=== PATIENT | male | born 1970 | race Hispanic/Latino ===

== ENCOUNTER 2021-03-25 10:01 | Inpatient (IN) | payer MEDICAID, OTHER ==
[2021-03-25] MEDS ORDERED: IPRATROPIUM 0.02% NEBU 2.5 ML IH ONE ×2 (10:42→14:18)
[2021-03-25] MEDS ORDERED: ALBUTEROL 2.5 MG/3 ML NEBU IH ONE ×2 (10:42→14:18)
[2021-03-25] MEDS ORDERED: methylPREDNISolone Sod Succinate 125 MG/2 ML INJ IV ONE (10:43)
--- NOTE | 2021-03-25 11:06 | Emergency Department Report ---
HPI - General Chief Complaint: Dyspnea/Respdistress Time Seen by Provider: 03/25/21 10:28 - HPI HPI: Room 23 The patient is a 51-year-old male present with a chief complaint of shortness of breath. Patient states for the past 3 to 4 days he has had shortness of breath at rest as well as dyspnea on exertion. Patient admits to orthopnea for the past 3 to 4 days as well. Patient states he has had a cough has been nonproductive for the past week. Patient is to subjective fever. Patient denies loss of sense of taste or smell. Patient states he has not been vaccinated against Covid ED Past Medical Hx - Past Medical History Previous Medical History?: No - Surgical History Past Surgical History?: No - Family History Family history: no significant - Social History Smoking Status: Current Every Day Smoker (1 pack/day) Substance Use Type: Alcohol (Moderate), Marijuana ED Review of Systems ROS: Stated complaint: FAITH Other details as noted in HPI Constitutional: fever (Subjective) Eyes: denies: eye pain ENT: denies: throat pain Respiratory: cough, shortness of breath Cardiovascular: dyspnea on exertion. denies: chest pain Endocrine: no symptoms reported Gastrointestinal: denies: abdominal pain Genitourinary: denies: dysuria Musculoskeletal: denies: back pain Neurological: denies: headache Physical Exam - Physical Exam Vital Signs: Vital Signs 03/25/21 03/25/21 10:10 10:30 Temperature 98.1 F 98.1 F Pulse Rate 101 H 88 Respiratory 18 16 Rate Blood Pressure 158/88 Blood Pressure 147/101 [Left] O2 Sat by Pulse 97 96 Oximetry Physical Exam: GENERAL: The patient is well-developed well-nourished male lying on stretcher not appearing to be in acute distress. [] HEENT: Normocephalic. Atraumatic. Extraocular motions are intact. Patient has moist mucous membranes. NECK: Supple. Trachea midline CHEST/LUNGS: Diminished throughout HEART/CARDIOVASCULAR: Regular. There is no tachycardia. There is no gallop rub or murmur. ABDOMEN: Abdomen is soft, nontender. Patient has normal bowel sounds. There is no abdominal distention. SKIN: There is no rash. There is no edema. There is no diaphoresis. NEURO: The patient is awake, alert, and oriented. The patient is cooperative. The patient has no focal neurologic deficits. The patient has normal speech. GCS 15 MUSCULOSKELETAL: There is no evidence of acute injury. ED Course Vital Signs 03/25/21 03/25/21 10:10 10:30 Temperature 98.1 F 98.1 F Pulse Rate 101 H 88 Respiratory 18 16 Rate Blood Pressure 158/88 Blood Pressure 147/101 [Left] O2 Sat by Pulse 97 96 Oximetry - Reevaluation(s) Reevaluation #1: 03/25/21 12:06 Patient states he feels as though he is improving. Patient still diminished but now able to hear faint wheezing. Will continue neb Reevaluation #2: 03/25/21 14:21 Patient remains diminished with increased work of breathing. SPO2 ranging from 89-91% on supplemental O2. Will admit the patient to the hospital ED Medical Decision Making - Lab Data Result diagrams: 03/25/21 10:53 03/25/21 10:53 - EKG Data -: EKG Interpreted by Me EKG shows normal: sinus rhythm Rate: normal - EKG Data When compared to previous EKG there are: previous EKG unavailable Interpretation: other (No ischemic changes seen) - Radiology Data Radiology results: report reviewed (Chest x-ray), image reviewed (Chest x-ray) interpreted by me: Chest x-ray-no definite focal infiltrates, no pneumothorax. Basilar atelectasis [facility] [address] [place] [address] XRay Report Signed Patient: MAGNUS THOMPSON MR#: [id number] : 1970 Acct:[id number] Age/Sex: 51 / M ADM Date: 03/25/21 Loc: ED Attending Dr: Ordering Physician: MARCY BURGER MD Date of Service: 03/25/21 Procedure(s): XR chest 1V ap Accession Number(s): [id number] cc: MARCY BURGER MD Fluoro Time In Minutes: CHEST 1 VIEW 03/25/2021 10:52 AM INDICATION / CLINICAL INFORMATION: Shortness of breath, cough. COMPARISON: None available. FINDINGS: SUPPORT DEVICES: None. HEART / MEDIASTINUM: No significant abnormality. LUNGS / PLEURA: Mild atelectasis in the left lower lung No pneumothorax. ADDITIONAL FINDINGS: No significant additional findings. IMPRESSION: 1. No acute findings. Signer Name: William Mendoza MD Signed: 03/25/2021 11:32 AM Workstation Name: [id number] Transcribed By: CW Dictated By: THI MENDOZA MD Electronically Authenticated By: THI MENDOZA MD Signed Date/Time: 03/25/211131 DD/ 30 TD/TT: Print Cancel - Differential Diagnosis COPD, pneumonia, bronchitis Critical care attestation.: If time is entered above; I have spent that time in minutes in the direct care of this critically ill patient, excluding procedure time. ED Disposition Clinical Impression: Hypoxia, Wheezing, Cough Disposition: ADMITTED INPATIENT Is pt being admited?: Yes Does the pt Need Aspirin: Yes Condition: Fair Referrals: PRIMARY CARE, [Primary Care Provider] - 3-5 Days Time of Disposition: 14:22 (Hospitalist called (Dr. Drake))
[2021-03-25 11:12] LABS: Basophils # (Auto) 0.1 K/mm3 (0.0-0.1); Eosinophils # (Auto) 0.3 K/mm3 (0.0-0.4); Eosinophils % (Auto) 3.5 % (0.0-4.3); Hematocrit 46.1 % (35.5-45.6); Hemoglobin 14.8 gm/dl (11.8-15.2); Lymphocytes # (Auto) 1.5 K/mm3 (1.2-5.4); Lymphocytes % (Auto) 17.2 % (13.4-35.0); Mean Corpuscular HGB Conc 32 % (32-34); Mean Corpuscular Volume 90 fl (84-94); Monocytes # (Auto) 0.7 K/mm3 (0.0-0.8); Monocytes % (Auto) 8.1 % (0.0-7.3); Platelet Count 349 K/mm3 (140-440); Red Cell Distribution Width 14.1 % (13.2-15.2)
[2021-03-25 11:18] LABS: INR 0.88 (0.87-1.13)
--- NOTE | 2021-03-25 11:36 | XRay Report ---
CHEST 1 VIEW 03/25/2021 10:52 AM INDICATION / CLINICAL INFORMATION: Shortness of breath, cough. COMPARISON: None available. FINDINGS: SUPPORT DEVICES: None. HEART / MEDIASTINUM: No significant abnormality. LUNGS / PLEURA: Mild atelectasis in the left lower lung No pneumothorax. ADDITIONAL FINDINGS: No significant additional findings. IMPRESSION: 1. No acute findings. Signer Name: William Mendoza MD Signed: 03/25/2021 11:32 AM Workstation Name: [id number]
[2021-03-25 11:41] LABS: Creatine Kinase MB 4.3 ng/mL (0.0-4.0)
[2021-03-25 11:43] LABS: Alanine Aminotransferase 23 units/L (7-56); Albumin 4.1 g/dL (3.9-5); Blood Urea Nitrogen 10 mg/dL (9-20); Calcium 9.1 mg/dL (8.4-10.2); Hemolysis Index 110
[2021-03-25 11:51] LABS: BUN/Creatinine Ratio 20
[2021-03-25] MEDS ORDERED: MAGNESIUM SULFATE 2 GM/50 ML BAG IV ONE (11:58)
[2021-03-25] MEDS ORDERED: methylPREDNISolone Sod Succinate 125 MG/2 ML INJ IV SCH (13:00)
[2021-03-25] MEDS ORDERED: IPRATROPIUM 0.02% NEBU 2.5 ML IH SCH (13:00)
[2021-03-25] MEDS ORDERED: ALBUTEROL 2.5 MG/3 ML NEBU IH SCH (13:00)
[2021-03-25] MEDS ORDERED: MAGNESIUM SULFATE 2 GM/50 ML BAG IV SCH (13:00)
[2021-03-25] MEDS ORDERED: HYDROcodone/ACETAMINOPHEN 5-325 MG TAB PO ONE (14:21)
--- NOTE | 2021-03-25 15:03 | History and Physical Report ---
History of Present Illness Chief complaint: I cannot breathe History of present illness: 51 YO Male with Obesity Hypoventilation Syndrome, Nicotine Dependence, ETOH Dependence presents ED for evaluation. Patient reports "I cannot breathe". Patient states that he has experienced shortness of breath over the past 1 week with worsening symptoms over the past 4 days. Patient acknowledges increased productive cough with clear sputum, increased nebulizer use without relief, decreased exercise tolerance. EMS was notified and upon arrival the patient was found to be in distress and subsequent transported to [facility] for further care and evaluation of the aforementioned symptoms. The patient was seen and evaluated in the emergency department. All lab and imaging studies reviewed. Patient was found to have a pulse oximetry of 88% on room air with exertion which is consistent with acute hypoxemic respiratory failure suspected secondary to COPD exacerbation. Patient treated with nebulizer therapy and supplemental oxygen without significant relief of symptoms. Patient admitted to medical floor and initiated on COPD exacerbation protocol. Patient denies fever, chills, palpitation, skin rash, recent contact, known exposure to COVID-19, unilateral leg swelling, calf pain, prolonged travel/immobility, individual/family history of DVT/PE/bleeding/blood clotting disorders. No prior admission for review. No medication listed at time of admission reconciliation. Advanced care planning conducted in ED. Past History Past Medical History: other (See HPI) Past Surgical History: No surgical history, Other (Reviewed) Social history: single, smoking, alcohol abuse Family history: hypertension Medications and Allergies Allergies Allergy/AdvReac Type Severity Reaction Status Date / Time No Known Allergies Allergy Unverified 03/25/21 12:48 Active Meds: Active Medications Albuterol (Albuterol 2.5 Mg/3 Ml Nebu) 10 mg IH ONCE@1130 SYED Stop: 03/25/21 16:00 Last Admin: 03/25/21 14:06 Dose: Not Given Documented by: Ipratropium Landis (Ipratropium 0.02% Nebu 2.5 Ml) 1 mg IH ONCE@1100 SYED Stop: 03/25/21 16:00 Last Admin: 03/25/21 14:06 Dose: Not Given Documented by: Review of Systems Constitutional: no weight loss, no weight gain, no fever, no chills Ears, nose, mouth and throat: no ear pain, no decreased hearing, no nose pain, no sinus pressure Cardiovascular: no chest pain, no orthopnea, no edema, no syncope Respiratory: cough, cough with sputum, excessive sputum, shortness of breath, dyspnea on exertion Gastrointestinal: no abdominal pain, no nausea, no diarrhea Genitourinary Male: no hematuria, no flank pain, no discharge, no urinary frequency, no urinary hesitancy Rectal: no pain, no incontinence, no bleeding Musculoskeletal: no neck stiffness, no neck pain, no arm numbness/tingling Integumentary: no rash, no pruritis, no sores, no jaundice, no boils Neurological: no head injury, no paralysis, no weakness, no tingling, no seizures, no syncope Psychiatric: no anxiety, no memory loss, no sleep disturbances, no insomnia, no change in appetite Endocrine: no cold intolerance, no polydipsia, no polyuria, no excessive sweating Hematologic/Lymphatic: no easy bruising, no easy bleeding, no lymphadenopathy Allergic/Immunologic: no urticaria, no allergic rhinitis, no anaphylaxis, no angioedema Exam - Constitutional Vitals: Temp Pulse Resp BP Pulse Ox 98.1 F 106 H 22 154/100 99 03/25/21 10:30 03/25/21 14:33 03/25/21 14:33 03/25/21 13:08 03/25/21 13:08 General appearance: Present: mild distress - EENT Eyes: Present: PERRL ENT: hearing intact, clear oral mucosa - Neck Neck: Present: supple, normal ROM - Respiratory Respiratory effort: labored, pursed lips, accessory muscle use, stridor Respiratory: bilateral: diminished, rhonchi - Cardiovascular Heart Sounds: Present: S1 & S2. Absent: rub, click - Extremities Extremities: pulses symmetrical, No edema Peripheral Pulses: within normal limits - Abdominal General gastrointestinal: Present: soft, non-tender, non-distended, normal bowel sounds Male genitourinary: Present: normal - Integumentary Integumentary: Present: clear, warm, dry - Musculoskeletal Musculoskeletal: generalized weakness - Psychiatric Psychiatric: appropriate mood/affect, intact judgment & insight - Neurologic Neurologic: CNII-XII intact, moves all extremities HEART Score - HEART Score Troponin: Troponin T < 0.010 ng/mL (0.00-0.029) 03/25/21 10:53 Results - Labs CBC & Chem 7: 03/25/21 10:53 03/25/21 10:53 Labs: Abnormal lab results 03/25/21 03/25/21 Range/Units 10:53 10:53 RBC 5.10 H (3.65-5.03) M/mm3 Hct 46.1 H (35.5-45.6) % [place] % (Auto) 8.1 H (0.0-7.3) % Seg Neutrophils % 70.2 H (40.0-70.0) % Potassium 5.1 H (3.6-5.0) mmol/L Creatinine 0.5 L (0.8-1.3) mg/dL Glucose 106 H (75-100) mg/dL CK-MB (CK-2) 4.3 H (0.0-4.0) ng/mL CK-MB (CK-2) Rel Index 5.5 H (0-4) Assessment and Plan - Patient Problems (1) Acute hypoxemic respiratory failure Current Visit: Yes Status: Acute Plan to address problem: Chest x-ray, supplemental oxygen, pulse oximetry, nebulizer therapy, pulmonary toilet, early ambulation. (2) COPD exacerbation Current Visit: Yes Status: Acute Plan to address problem: Supplemental oxygen, pulse oximetry, nebulizer therapy, IV steroid therapy, chest x-ray, will consider noninvasive positive pressure ventilation if patient is unable to maintain pulse oximetry on supplemental oxygen via nasal cannula without increased work of breathing. (3) Obesity hypoventilation syndrome Current Visit: Yes Status: Acute Plan to address problem: Balanced diet, increase physical activity at discharge, outpatient pulmonary follow-up for sleep study. (4) Nicotine dependence Current Visit: Yes Status: Acute Qualifiers: Nicotine product type: cigarettes Substance use status: in withdrawal Qualified Code(s): F17.213 - Nicotine dependence, cigarettes, with withdrawal Plan to address problem: Smoking cessation counseling, supportive care. (5) Alcohol dependence Current Visit: Yes Status: Acute Qualifiers: Substance use status: uncomplicated Qualified Code(s): F10.20 - Alcohol dependence, uncomplicated Plan to address problem: Thiamine, folic acid, multivitamin daily, [facility] protocol (6) DVT prophylaxis Current Visit: Yes Status: Acute Plan to address problem: SCD to bilateral lower extremities while in bed, patient is ambulatory (7) Advance care planning Current Visit: Yes Status: Acute Plan to address problem: Disease education conducted, care plan discussed, diagnoses discussed, prognosis discussed, patient is full code, patient acknowledges understanding and agreement with care plan, +30 minutes.
[2021-03-25] MEDS ORDERED: ONDANSETRON 4 MG/2 ML INJ IV PRN (15:17)
[2021-03-25] MEDS ORDERED: ALBUTEROL 2.5 MG/3 ML NEBU IH PRN (15:17)
[2021-03-25] MEDS ORDERED: HYDROmorphone 1 MG/1 ML INJ IV PRN (15:17)
[2021-03-25] MEDS ORDERED: ACETAMINOPHEN 325 MG TAB PO PRN (15:17)
[2021-03-25 16:42] LABS: ABG Base Excess 4.2 mmol/L (-2.0-3.0); ABG HCO3 32.9 mmol/L (20.0-26.0); ABG PH 7.303 pH Units (7.350-7.450); ABG PO2 51.2 mm Hg (80.0-90.0)
[2021-03-25 16:44] LABS: ABG Methemoglobin 0.6 % (0.0-1.5)
[2021-03-25] MEDS: MULTIVITAMINS ,THERAPEUTIC TAB PO SCH (21:04)
[2021-03-25] MEDS: FOLIC ACID 1 MG TAB PO SCH (21:04)
[2021-03-25] MEDS: methylPREDNISolone Sod Succinate 40 MG/1 ML INJ IV SCH (21:05)
[2021-03-25] MEDS: THIAMINE 100 MG TAB PO SCH (21:05)
[2021-03-25] MEDS: FAMOTIDINE 20 MG TAB PO SCH (22:59)
[2021-03-26] MEDS: methylPREDNISolone Sod Succinate 40 MG/1 ML INJ IV SCH ×3 (06:04→21:34)
[2021-03-26 08:28] LABS: Hemoglobin 15.1 gm/dl (11.8-15.2); Mean Corpuscular HGB Conc 32 % (32-34); Mean Corpuscular Volume 91 fl (84-94); Platelet Count 409 K/mm3 (140-440); Red Cell Distribution Width 14.6 % (13.2-15.2)
[2021-03-26 08:56] LABS: Blood Urea Nitrogen 13 mg/dL (9-20); Calcium 9.2 mg/dL (8.4-10.2); Hemolysis Index 2
[2021-03-26 09:14] LABS: BUN/Creatinine Ratio 26
--- NOTE | 2021-03-26 09:47 | Event Note ---
Date: 03/26/21 Full consult to follow: Agree patient does have OHS and likely untreated TIANA with Uncontrolled hypertension. CXR was clear with some mild cardiomegaly. Suggest the followin. Obtain 2D echo to evaluate left and right sided pressures and to look for Pulm HTN 2. CM consult for NIV therapy at night given hypercapnea on admit ABG 3. Smoking cessation 4. Please give a trial of lasix therapy IV 5. Wean FiO2 for sats >88%, most likely will need oxygen at discharge. 6. Pulmicort and Brovana therapy BID
[2021-03-26] MEDS: MULTIVITAMINS ,THERAPEUTIC TAB PO SCH (10:01)
[2021-03-26] MEDS: THIAMINE 100 MG TAB PO SCH (10:01)
[2021-03-26] MEDS: FAMOTIDINE 20 MG TAB PO SCH ×2 (10:01→21:34)
[2021-03-26] MEDS: FOLIC ACID 1 MG TAB PO SCH (10:01)
--- NOTE | 2021-03-26 10:29 | Electrocardiograph Report ---
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
--- NOTE | 2021-03-26 11:02 | Progress Note ---
Assessment and Plan Assessment and plan: 51 YO Male with Obesity Hypoventilation Syndrome, Nicotine Dependence, ETOH Dependence presents ED for evaluation. Patient reports "I cannot breathe". Patient states that he has experienced shortness of breath over the past 1 week with worsening symptoms over the past 4 days. Patient acknowledges increased productive cough with clear sputum, increased nebulizer use without relief, decreased exercise tolerance. EMS was notified and upon arrival the patient was found to be in distress and subsequent transported to [facility] for further care and evaluation of the aforementioned symptoms. The patient was seen and evaluated in the emergency department. All lab and imaging studies reviewed. Patient was found to have a pulse oximetry of 88% on room air with exertion which is consistent with acute hypoxemic respiratory failure suspected secondary to COPD exacerbation. Patient treated with nebulizer therapy and supplemental oxygen without significant relief of symptoms. Patient admitted to medical floor and initiated on COPD exacerbation protocol. Patient denies fever, chills, palpitation, skin rash, recent contact, known exposure to COVID-19, unilateral leg swelling, calf pain, prolonged travel/immobility, individual/family history of DVT/PE/bleeding/blood clotting disorders. No prior admission for review. No medication listed at time of admission reconciliation. Advanced care planning conducted in ED. 03/26: Patient seen and examined, counselling for 15 mins given on tobacco use d isorder. Imaging studies CXR was clear with some mild cardiomegaly. Will obtain pulmonary consult considering 15 liters [place]. Continue current steroid therapy, await COVID19 TESTING. (1) Acute hypoxemic respiratory failure Current Visit: Yes Status: Acute Plan to address problem: Chest x-ray, supplemental oxygen, pulse oximetry, nebulizer therapy, pulmonary toilet, early ambulation. (2) COPD exacerbation Current Visit: Yes Status: Acute Plan to address problem: Supplemental oxygen, pulse oximetry, nebulizer therapy, IV steroid therapy, chest x-ray, will consider noninvasive positive pressure ventilation if patient is unable to maintain pulse oximetry on supplemental oxygen via nasal cannula without increased work of breathing. (3) Obesity hypoventilation syndrome Current Visit: Yes Status: Acute Plan to address problem: Balanced diet, increase physical activity at discharge, outpatient pulmonary follow-up for sleep study. (4) Nicotine dependence Current Visit: Yes Status: Acute Qualifiers: Nicotine product type: cigarettes Substance use status: in withdrawal Qualified Code(s): F17.213 - Nicotine dependence, cigarettes, with withdrawal Plan to address problem: Smoking cessation counseling, supportive care. (5) Alcohol dependence Current Visit: Yes Status: Acute Qualifiers: Substance use status: uncomplicated Qualified Code(s): F10.20 - Alcohol dependence, uncomplicated Plan to address problem: Thiamine, folic acid, multivitamin daily, CIWA protocol (6) DVT prophylaxis Current Visit: Yes Status: Acute Plan to address problem: SCD to bilateral lower extremities while in bed, patient is ambulatory (7) Advance care planning Current Visit: Yes Status: Acute Plan to address problem: Disease education conducted, care plan discussed, diagnoses discussed, prognosis discussed, patient is full code, patient acknowledges understanding and agre ement with care plan, +30 minutes. History Interval history: Patient seen and examined, resting comfortable although still with exertional shortness of breath Hospitalist Physical - Constitutional Vitals: Temp Pulse Resp BP Pulse Ox 97.8 F 118 H 18 146/87 91 03/26/21 04:30 03/26/21 04:30 03/26/21 04:30 03/26/21 04:30 03/26/21 04:30 General appearance: Present: mild distress, well-nourished - EENT Eyes: Present: PERRL, EOM intact ENT: hearing intact, clear oral mucosa - Neck Neck: Present: supple, normal ROM - Respiratory Respiratory: bilateral: diminished - Cardiovascular Rhythm: regular Heart Sounds: Present: S1 & S2, systolic murmur - Extremities Extremities: no ischemia, pulses intact, pulses symmetrical, No edema, normal temperature, normal color, Full ROM Peripheral Pulses: within normal limits - Abdominal General gastrointestinal: soft, non-tender, non-distended, normal bowel sounds - Integumentary Integumentary: Present: clear, warm, dry - Psychiatric Psychiatric: appropriate mood/affect, intact judgment & insight, cooperative - Neurologic Neurologic: CNII-XII intact, moves all extremities - Allied Health Allied health notes reviewed: nursing HEART Score - HEART Score Troponin: Troponin T < 0.010 ng/mL (0.00-0.029) 03/25/21 10:53 Results - Labs CBC & Chem 7: 03/26/21 07:13 03/26/21 07:13 Labs: Laboratory Last Values WBC 17.7 K/mm3 (4.5-11.0) H 03/26/21 07:13 RBC 5.30 M/mm3 (3.65-5.03) H 03/26/21 07:13 Hgb 15.1 gm/dl (11.8-15.2) 03/26/21 07:13 Hct 48.0 % (35.5-45.6) H 03/26/21 07:13 MCV 91 fl (84-94) 03/26/21 07:13 MCH 29 pg (28-32) 03/26/21 07:13 MCHC 32 % (32-34) 03/26/21 07:13 RDW 14.6 % (13.2-15.2) 03/26/21 07:13 Plt Count 409 K/mm3 (140-440) 03/26/21 07:13 Lymph % (Auto) 17.2 % (13.4-35.0) 03/25/21 10:53 [place] % (Auto) 8.1 % (0.0-7.3) H 03/25/21 10:53 Eos % (Auto) 3.5 % (0.0-4.3) 03/25/21 10:53 Baso % (Auto) 1.0 % (0.0-1.8) 03/25/21 10:53 Lymph # (Auto) 1.5 K/mm3 (1.2-5.4) 03/25/21 10:53 [place] # (Auto) 0.7 K/mm3 (0.0-0.8) 03/25/21 10:53 Eos # (Auto) 0.3 K/mm3 (0.0-0.4) 03/25/21 10:53 Baso # (Auto) 0.1 K/mm3 (0.0-0.1) 03/25/21 10:53 Seg Neutrophils % Infusion Therapy Nurse 03/26/21 07:13 Seg Neutrophils # 6.2 K/mm3 (1.8-7.7) 03/25/21 10:53 PT 12.9 Sec. (12.2-14.9) 03/25/21 10:53 INR 0.88 (0.87-1.13) 03/25/21 10:53 ABG pH 7.303 pH Units (7.350-7.450) L 03/25/21 16:35 ABG pCO2 68.0 mm Hg 03/25/21 16:35 ABG pO2 51.2 mm Hg (80.0-90.0) L 03/25/21 16:35 ABG HCO3 32.9 mmol/L (20.0-26.0) H 03/25/21 16:35 ABG O2 Saturation 89.0 % (95.0-99.0) L 03/25/21 16:35 ABG O2 Content 17.3 (0.0-44) 03/25/21 16:35 ABG Base Excess 4.2 mmol/L (-2.0-3.0) H 03/25/21 16:35 ABG Hemoglobin 15.4 gm/dl (14.0-18.0) 03/25/21 16:35 ABG Carboxyhemoglobin 3.4 % (0.0-5.0) 03/25/21 16:35 ABG Methemoglobin 0.6 % (0.0-1.5) 03/25/21 16:35 Oxyhemoglobin 85.4 % (95.0-99.0) L 03/25/21 16:35 FiO2 32 % 03/25/21 16:35 Sodium 138 mmol/L (137-145) 03/26/21 07:13 Potassium 4.7 mmol/L (3.6-5.0) 03/26/21 07:13 Chloride 96.2 mmol/L (98-107) L 03/26/21 07:13 Carbon Dioxide 30 mmol/L (22-30) 03/26/21 07:13 Anion Gap 17 mmol/L 03/26/21 07:13 BUN 13 mg/dL (9-20) 03/26/21 07:13 Creatinine 0.5 mg/dL (0.8-1.3) L 03/26/21 07:13 Estimated GFR > 60 ml/min 03/26/21 07:13 BUN/Creatinine Ratio 26 % 03/26/21 07:13 Glucose 140 mg/dL (75-100) H 03/26/21 07:13 Calcium 9.2 mg/dL (8.4-10.2) 03/26/21 07:13 Total Bilirubin 0.30 mg/dL (0.1-1.2) 03/25/21 10:53 AST 19 units/L (5-40) 03/25/21 10:53 ALT 23 units/L (7-56) 03/25/21 10:53 Alkaline Phosphatase 117 units/L (35-129) 03/25/21 10:53 Total Creatine Kinase 78 units/L (55-170) 03/25/21 10:53 CK-MB (CK-2) 4.3 ng/mL (0.0-4.0) H 03/25/21 10:53 CK-MB (CK-2) Rel Index 5.5 (0-4) H 03/25/21 10:53 Troponin T < 0.010 ng/mL (0.00-0.029) 03/25/21 10:53 NT-Pro-B Natriuret Pep 43.13 pg/mL (0-900) 03/25/21 10:53 Total Protein 7.4 g/dL (6.3-8.2) 03/25/21 10:53 Albumin 4.1 g/dL (3.9-5) 03/25/21 10:53 Albumin/Globulin Ratio 1.2 % 03/25/21 10:53 Tomas/IV: Voiding Method Urinal Active Medications - Current Medications Current Medications: Generic Name Dose Route Start Last Admin Trade Name Freq PRN Reason Stop Dose Admin Acetaminophen 650 mg 03/25/21 15:17 Acetaminophen 325 Mg Tab PO Q4H PRN Pain MILD(1-3)/Fever >100.5/FLOYD Albuterol 2.5 mg 03/25/21 15:17 Albuterol 2.5 Mg/3 Ml Nebu IH Q4HRT PRN Shortness Of Breath Famotidine 20 mg 03/25/21 22:00 03/26/21 10:01 Famotidine 20 Mg Tab PO 20 mg BID SYED Administration Folic Acid 1 mg 03/25/21 20:00 03/26/21 10:01 Folic Acid 1 Mg Tab PO 1 mg QDAY SYED Administration Hydromorphone HCl 0.5 mg 03/25/21 15:17 Hydromorphone 1 Mg/1 Ml Inj IV Q23H PRN Pain , Severe (7-10) Lorazepam 2 mg 03/25/21 19:42 Lorazepam 2 Mg/Ml Vial IV Q1HR PRN CIWA-Ar 8-15 Methylprednisolone Sodium Succinate 40 mg 03/25/21 20:30 03/26/21 06:04 Methylprednisolone Sod Succinate 40 Mg/1 Ml Inj IV 40 mg Q8H SYED Administration Multivitamins 1 each 03/25/21 19:42 03/26/21 10:01 Multivitamins ,Therapeutic Tab PO 1 each QDAY SYED Administration Ondansetron HCl 4 mg 03/25/21 15:17 Ondansetron 4 Mg/2 Ml Inj IV Q8H PRN Nausea And Vomiting Oxycodone/Acetaminophen 1 tab 03/25/21 15:17 Oxycodone /Acetaminophen 5-325mg Tab PO Q16H PRN Pain, Moderate (4-6) Sodium Chloride 10 ml 03/25/21 22:00 03/26/21 10:01 Sodium Chloride 0.9% 10 Ml Flush Syringe IV 10 ml BID SYED Administration Sodium Chloride 10 ml 03/25/21 15:17 Sodium Chloride 0.9% 10 Ml Flush Syringe IV PRN PRN LINE FLUSH Thiamine HCl 100 mg 03/25/21 20:00 03/26/21 10:01 Thiamine 100 Mg Tab PO 100 mg QDAY SYED Administration
[2021-03-26 11:36] LABS: Band Neutrophils # (Manual) 0.2 K/mm3; Myelocytes # (Manual) 0.2 K/mm3; Platelet Estimate Consistent w Auto; RBC Morphology Normal; Total Cells Counted 100
[2021-03-27] MEDS: methylPREDNISolone Sod Succinate 40 MG/1 ML INJ IV SCH (04:02)
[2021-03-27] MEDS: FAMOTIDINE 20 MG TAB PO SCH ×2 (09:17→21:00)
[2021-03-27] MEDS: THIAMINE 100 MG TAB PO SCH (09:17)
[2021-03-27] MEDS: LORazepam 2 MG/ML VIAL IV PRN (09:17)
[2021-03-27] MEDS: FOLIC ACID 1 MG TAB PO SCH (09:17)
[2021-03-27] MEDS: MULTIVITAMINS ,THERAPEUTIC TAB PO SCH (09:17)
[2021-03-27] MEDS: oxyCODONE /ACETAMINOPHEN 5-325MG TAB PO PRN ×2 (10:01→14:27)
--- NOTE | 2021-03-27 13:11 | Consultation ---
History of Present Illness Consult date: 03/27/21 Requesting physician: MANUELA CALVERT Reason for consult: COPD, hypoxemia History of present illness: 51 YO Male with Obesity Hypoventilation Syndrome, Nicotine Dependence, ETOH Dependence presents ED for evaluation. Patient reports "I cannot breathe". Patient states that he has experienced shortness of breath over the past 1 week with worsening symptoms over the past 4 days. Patient acknowledges increased productive cough with clear sputum, increased nebulizer use without relief, decreased exercise tolerance. EMS was notified and upon arrival the patient was found to be in distress and subsequent transported to [facility] for further care and evaluation of the aforementioned symptoms. The patient was seen and evaluated in the emergency department. All lab and imaging studies reviewed. Patient was found to have a pulse oximetry of 88% on room air with exertion which is consistent with acute hypoxemic respiratory failure suspected secondary to COPD exacerbation. Patient treated with nebulizer therapy and supplemental oxygen without significant relief of symptoms. Patient admitted to medical floor and initiated on COPD exacerbation protocol. Patient denies fever, chills, palpitation, skin rash, recent contact, known exposure to COVID-19, unilateral leg swelling, calf pain, prolonged travel/immobility, individual/family history of DVT/PE/bleeding/blood clotting disorders. No prior admission for review. No medication listed at time of admission reconciliation. Advanced care planning conducted in ED. Past History Past Medical History: other (See HPI) Past Surgical History: No surgical history, Other (Reviewed) Social history: single, smoking, alcohol abuse Family history: hypertension Medications and Allergies Allergies Allergy/AdvReac Type Severity Reaction Status Date / Time No Known Allergies Allergy Verified 03/26/21 08:24 Home Medications Medication Instructions Recorded Confirmed Last Taken Type Albuterol Mdi (or & Nicu Only) 1 puff INHALATION QAM&QHS 03/26/21 03/26/21 03/24/21 History [ProAir HFA Inhaler] Active Meds: Active Medications Acetaminophen (Acetaminophen 325 Mg Tab) 650 mg PO Q4H PRN PRN Reason: Pain MILD(1-3)/Fever >100.5/FLOYD Albuterol (Albuterol 2.5 Mg/3 Ml Nebu) 2.5 mg IH Q4HRT PRN PRN Reason: Shortness Of Breath Arformoterol Tartrate (Arformoterol 15 Mcg/2 Ml Nebu) 15 mcg IH Q12HRT [facility] Budesonide (Budesonide 0.5 Mg/2 Ml Nebu) 0.5 mg IH Q12HRT [facility] Famotidine (Famotidine 20 Mg Tab) 20 mg PO BID [facility] Last Admin: 03/27/21 09:17 Dose: 20 mg Documented by: Folic Acid (Folic Acid 1 Mg Tab) 1 mg PO QDAY [facility] Last Admin: 03/27/21 09:17 Dose: 1 mg Documented by: Furosemide (Furosemide 20 Mg/2 Ml Inj) 20 mg IV ONCE ONE Stop: 03/27/21 13:05 Hydromorphone HCl (Hydromorphone 1 Mg/1 Ml Inj) 0.5 mg IV Q23H PRN PRN Reason: Pain , Severe (7-10) Lorazepam (Lorazepam 2 Mg/Ml Vial) 2 mg IV Q1HR PRN PRN Reason: CIWA-Ar 8-15 Last Admin: 03/27/21 09:17 Dose: 2 mg Documented by: Methylprednisolone Sodium Succinate (Methylprednisolone Sod Succinate 40 Mg/1 Ml Inj) 60 mg IV Q6H [facility] Multivitamins (Multivitamins ,Therapeutic Tab) 1 each PO QDAY [facility] Last Admin: 03/27/21 09:17 Dose: 1 each Documented by: Ondansetron HCl (Ondansetron 4 Mg/2 Ml Inj) 4 mg IV Q8H PRN PRN Reason: Nausea And Vomiting Oxycodone/Acetaminophen (Oxycodone /Acetaminophen 5-325mg Tab) 1 tab PO Q16H PRN PRN Reason: Pain, Moderate (4-6) Last Admin: 03/27/21 10:01 Dose: 1 tab Documented by: Sodium Chloride (Sodium Chloride 0.9% 10 Ml Flush Syringe) 10 ml IV BID [facility] Last Admin: 03/27/21 09:17 Dose: 10 ml Documented by: Sodium Chloride (Sodium Chloride 0.9% 10 Ml Flush Syringe) 10 ml IV PRN PRN PRN Reason: LINE FLUSH Thiamine HCl (Thiamine 100 Mg Tab) 100 mg PO QDAY [facility] Last Admin: 03/27/21 09:17 Dose: 100 mg Documented by: Physical Examination Vital signs: Vital Signs Temp Pulse Resp BP Pulse Ox 98.1 F 101 H 18 147/101 97 03/25/21 10:10 03/25/21 10:10 03/25/21 10:10 03/25/21 10:10 03/25/21 10:10 Results - Laboratory Findings CBC and BMP: 03/26/21 07:13 03/26/21 07:13 ABG ABG pH 7.303 pH Units (7.350-7.450) L 03/25/21 16:35 ABG pCO2 68.0 mm Hg 03/25/21 16:35 ABG pO2 51.2 mm Hg (80.0-90.0) L 03/25/21 16:35 ABG O2 Saturation 89.0 % (95.0-99.0) L 03/25/21 16:35 PT/INR, D-dimer PT 12.9 Sec. (12.2-14.9) 03/25/21 10:53 INR 0.88 (0.87-1.13) 03/25/21 10:53 Abnormal lab findings: Abnormal Labs 03/25/21 03/25/21 03/25/21 10:53 10:53 16:35 WBC RBC 5.10 H Hct 46.1 H [place] % (Auto) 8.1 H Seg Neutrophils % 70.2 H Seg Neuts % (Manual) Lymphocytes % (Manual) Seg Neutrophils # Man Lymphocytes # (Manual) ABG pH 7.303 L ABG pO2 51.2 L ABG HCO3 32.9 H ABG O2 Saturation 89.0 L ABG Base Excess 4.2 H Oxyhemoglobin 85.4 L Potassium 5.1 H Chloride Creatinine 0.5 L Glucose 106 H CK-MB (CK-2) 4.3 H CK-MB (CK-2) Rel Index 5.5 H 03/26/21 03/26/21 07:13 07:13 WBC 17.7 H RBC 5.30 H Hct 48.0 H [place] % (Auto) Seg Neutrophils % Seg Neuts % (Manual) 90.0 H Lymphocytes % (Manual) 3.0 L Seg Neutrophils # Man 15.9 H Lymphocytes # (Manual) 0.5 L ABG pH ABG pO2 ABG HCO3 ABG O2 Saturation ABG Base Excess Oxyhemoglobin Potassium Chloride 96.2 L Creatinine 0.5 L Glucose 140 H CK-MB (CK-2) CK-MB (CK-2) Rel Index Assessment and Plan 51 y/o obese male with acute respiratory failure thought secondary to COPD exacerbation. 1. Changed solumedrol to 60q6 2. Added BID Pulmicort and Brovana 3. Lasix therapy IV x1 4. Wean Oxygen for sats >88% 5. Should be screened for TIANA as an outpatient 6. Guarded prognosis.
[2021-03-27] MEDS: BUDESONIDE 0.5 MG/2 ML NEBU IH SCH ×2 (13:22→20:19)
[2021-03-27] MEDS: ARFORMOTEROL 15 MCG/2 ML NEBU IH SCH ×2 (13:22→20:19)
[2021-03-27] MEDS ORDERED: FUROSEMIDE 20 MG/2 ML INJ IV NR (13:30)
[2021-03-27] MEDS ORDERED: methylPREDNISolone Sod Succinate 40 MG/1 ML INJ IV SCH (14:00)
[2021-03-27] MEDS: methylPREDNISolone Sod Succinate 125 MG/2 ML INJ IV SCH ×2 (14:27→21:00)
--- NOTE | 2021-03-27 15:23 | Progress Note ---
Assessment and Plan Assessment and plan: --Acute hypoxemic respiratory failure Current Visit: Yes Status: Acute Chest x-ray, supplemental oxygen, pulse oximetry, nebulizer therapy, pulmonary toilet, early ambulation. --Acute exacerbation of COPD; Current Visit: Yes Status: Acute Supplemental oxygen, pulse oximetry, nebulizer therapy, IV steroid therapy, chest x-ray, will consider noninvasive positive pressure ventilation if patient is unable to maintain pulse oximetry on supplemental oxygen via nasal cannula without increased work of breathing. --Obesity hypoventilation syndrome Current Visit: Yes Status: Acute Advised diet modification exercise as tolerated and weight reduction When medically stable Advised outpatient sleep evaluation to rule out obstructive sleep apnea --Ongoing tobacco use/ nicotine dependence Current Visit: Yes Status: Acute Smoking cessation counseling, risks and consequences of chronic tobacco use Discussed with the patient, also advised to use nicotine patch as needed I spent 70 minutes counseling the patient at the bedside Patient verbalized understanding --History of alcohol dependence Current Visit: Yes Status: Acute Advised to quit alcohol intake, advised Thiamine, folic acid, multivitamin daily, CIWA protocol as needed Patient strongly advised to seek alcohol Anonymous, alcohol withdrawal symptoms --DVT prophylaxis Current Visit: Yes Status: Acute Plan to address problem: SCD to bilateral lower extremities while in bed, patient is ambulatory --Advance care planning Current Visit: Yes Status: Acute Plan to address problem: Disease education conducted, care plan discussed, diagnoses discussed, prognosis discussed, patient is full code, patient acknowledges understanding and agreement with care plan, +30 minutes. We will closely monitor the patient and adjust the management as needed Plan of care reviewed with the patient and his nurse. Brief history and hospital course; 51 YO Male with Obesity Hypoventilation Syndrome, Nicotine Dependence, ETOH Dependence presents ED for evaluation. Patient reports "I cannot breathe". Patient states that he has experienced shortness of breath over the past 1 week with worsening symptoms over the past 4 days. Patient acknowledges increased productive cough with clear sputum, increased nebulizer use without relief, dec reased exercise tolerance. EMS was notified and upon arrival the patient was found to be in distress and subsequent transported to [facility] for further care and evaluation of the aforementioned symptoms. The patient was seen and evaluated in the emergency department. All lab and imaging studies reviewed. Patient was found to have a pulse oximetry of 88% on room air with exertion which is consistent with acute hypoxemic respiratory failure suspected secondary to COPD exacerbation. Patient treated with nebulizer therapy and supplemental oxygen without significant relief of symptoms. Patient admitted to medical floor and initiated on COPD exacerbation protocol. Patient denies fever, chills, p alpitation, skin rash, recent contact, known exposure to COVID-19, unilateral leg swelling, calf pain, prolonged travel/immobility, individual/family history of DVT/PE/bleeding/blood clotting disorders. No prior admission for review. No medication listed at time of admission reconciliation. Advanced care planning conducted in ED. 03/26: Patient seen and examined, counselling for 15 mins given on tobacco use disorder. Imaging studies CXR was clear with some mild cardiomegaly. Will obtain pulmonary consult considering 15 liters [place]. Continue current steroid therapy, await COVID19 TESTING. 03/27; COVID-19 test is negative, patient is severely hypoxemic requiring 15 L nasal cannula oxygen, wean as tolerated History Interval history: I have seen and examined the patient at the bedside Patient's chart and medications reviewed No new events reported by nursing staff Patient is in mild distress on 15 L nasal cannula oxygen Hospitalist Physical - Constitutional Vitals: Temp Pulse Resp BP Pulse Ox 98.4 F 120 H 20 116/81 95 03/27/21 11:46 03/27/21 13:22 03/27/21 13:22 03/27/21 11:46 03/27/21 13:22 General appearance: Present: mild distress, well-nourished, obese - EENT Eyes: Present: PERRL, EOM intact - Neck Neck: Present: supple, normal ROM - Respiratory Respiratory effort: normal Respiratory: bilateral: diminished, rhonchi, negative: rales, wheezing - Cardiovascular Rhythm: regular Heart Sounds: Present: S1 & S2 - Extremities Extremities: no ischemia, No edema - Abdominal General gastrointestinal: soft, non-tender, non-distended, normal bowel sounds - Integumentary Integumentary: Present: clear, warm - Psychiatric Psychiatric: appropriate mood/affect, cooperative - Neurologic Neurologic: CNII-XII intact, moves all extremities HEART Score - HEART Score Troponin: Troponin T < 0.010 ng/mL (0.00-0.029) 03/25/21 10:53 Results - Labs CBC & Chem 7: 03/26/21 07:13 03/26/21 07:13 Labs: Laboratory Last Values WBC 17.7 K/mm3 (4.5-11.0) H 03/26/21 07:13 RBC 5.30 M/mm3 (3.65-5.03) H 03/26/21 07:13 Hgb 15.1 gm/dl (11.8-15.2) 03/26/21 07:13 Hct 48.0 % (35.5-45.6) H 03/26/21 07:13 MCV 91 fl (84-94) 03/26/21 07:13 MCH 29 pg (28-32) 03/26/21 07:13 MCHC 32 % (32-34) 03/26/21 07:13 RDW 14.6 % (13.2-15.2) 03/26/21 07:13 Plt Count 409 K/mm3 (140-440) 03/26/21 07:13 Lymph % (Auto) 17.2 % (13.4-35.0) 03/25/21 10:53 [place] % (Auto) 8.1 % (0.0-7.3) H 03/25/21 10:53 Eos % (Auto) 3.5 % (0.0-4.3) 03/25/21 10:53 Baso % (Auto) 1.0 % (0.0-1.8) 03/25/21 10:53 Lymph # (Auto) 1.5 K/mm3 (1.2-5.4) 03/25/21 10:53 [place] # (Auto) 0.7 K/mm3 (0.0-0.8) 03/25/21 10:53 Eos # (Auto) 0.3 K/mm3 (0.0-0.4) 03/25/21 10:53 Baso # (Auto) 0.1 K/mm3 (0.0-0.1) 03/25/21 10:53 Add Manual Diff Complete 03/26/21 07:13 Total Counted 100 03/26/21 07:13 Seg Neutrophils % Smoking Tobacco Packer Hand 03/26/21 07:13 Seg Neuts % (Manual) 90.0 % (40.0-70.0) H 03/26/21 07:13 Band Neutrophils % 1.0 % 03/26/21 07:13 Lymphocytes % (Manual) 3.0 % (13.4-35.0) L 03/26/21 07:13 Monocytes % (Manual) 2.0 % (0.0-7.3) 03/26/21 07:13 Metamyelocytes % 3.0 % 03/26/21 07:13 Myelocytes % 1.0 % 03/26/21 07:13 Nucleated RBC % Not Reportable 03/26/21 07:13 Seg Neutrophils # 6.2 K/mm3 (1.8-7.7) 03/25/21 10:53 Seg Neutrophils # Man 15.9 K/mm3 (1.8-7.7) H 03/26/21 07:13 Band Neutrophils # 0.2 K/mm3 03/26/21 07:13 Lymphocytes # (Manual) 0.5 K/mm3 (1.2-5.4) L 03/26/21 07:13 Abs React Lymphs (Man) 0.0 K/mm3 03/26/21 07:13 Monocytes # (Manual) 0.4 K/mm3 (0.0-0.8) 03/26/21 07:13 Eosinophils # (Manual) 0.0 K/mm3 (0.0-0.4) 03/26/21 07:13 Basophils # (Manual) 0.0 K/mm3 (0.0-0.1) 03/26/21 07:13 Metamyelocytes # 0.5 K/mm3 03/26/21 07:13 Myelocytes # 0.2 K/mm3 03/26/21 07:13 Promyelocytes # 0.0 K/mm3 03/26/21 07:13 Blast Cells # 0.0 K/mm3 03/26/21 07:13 WBC Morphology Not Reportable 03/26/21 07:13 Hypersegmented Neuts Not Reportable 03/26/21 07:13 Hyposegmented Neuts Not Reportable 03/26/21 07:13 Hypogranular Neuts Not Reportable 03/26/21 07:13 Smudge Cells Not Reportable 03/26/21 07:13 Toxic Granulation Not Reportable 03/26/21 07:13 Toxic Vacuolation Not Reportable 03/26/21 07:13 Dohle Bodies Not Reportable 03/26/21 07:13 Pelger-Huet Anomaly Not Reportable 03/26/21 07:13 Janina Rods Not Reportable 03/26/21 07:13 Platelet Estimate Consistent w auto 03/26/21 07:13 Clumped Platelets Not Reportable 03/26/21 07:13 Plt Clumps, EDTA Not Reportable 03/26/21 07:13 Large Platelets Not Reportable 03/26/21 07:13 Giant Platelets Not Reportable 03/26/21 07:13 Platelet Satelliting Not Reportable 03/26/21 07:13 Plt Morphology Comment Not Reportable 03/26/21 07:13 RBC Morphology Normal 03/26/21 07:13 Dimorphic RBCs Not Reportable 03/26/21 07:13 Polychromasia Not Reportable 03/26/21 07:13 Hypochromasia Not Reportable 03/26/21 07:13 Poikilocytosis Not Reportable 03/26/21 07:13 Anisocytosis Not Reportable 03/26/21 07:13 Microcytosis Not Reportable 03/26/21 07:13 Macrocytosis Not Reportable 03/26/21 07:13 Spherocytes Not Reportable 03/26/21 07:13 Pappenheimer Bodies Not Reportable 03/26/21 07:13 Sickle Cells Not Reportable 03/26/21 07:13 Target Cells Not Reportable 03/26/21 07:13 Tear Drop Cells Not Reportable 03/26/21 07:13 Ovalocytes Not Reportable 03/26/21 07:13 Helmet Cells Not Reportable 03/26/21 07:13 [place] Bodies Not Reportable 03/26/21 07:13 [place] Rings Not Reportable 03/26/21 07:13 [place] Cells Not Reportable 03/26/21 07:13 Bite Cells Not Reportable 03/26/21 07:13 Crenated Cell Not Reportable 03/26/21 07:13 Elliptocytes Not Reportable 03/26/21 07:13 Acanthocytes (Spur) Not Reportable 03/26/21 07:13 Rouleaux Not Reportable 03/26/21 07:13 Hemoglobin C Crystals Not Reportable 03/26/21 07:13 Schistocytes Not Reportable 03/26/21 07:13 Malaria parasites Not Reportable 03/26/21 07:13 Justyn Bodies Not Reportable 03/26/21 07:13 Hem Pathologist Commnt No 03/26/21 07:13 PT 12.9 Sec. (12.2-14.9) 03/25/21 10:53 INR 0.88 (0.87-1.13) 03/25/21 10:53 ABG pH 7.303 pH Units (7.350-7.450) L 03/25/21 16:35 ABG pCO2 68.0 mm Hg 03/25/21 16:35 ABG pO2 51.2 mm Hg (80.0-90.0) L 03/25/21 16:35 ABG HCO3 32.9 mmol/L (20.0-26.0) H 03/25/21 16:35 ABG O2 Saturation 89.0 % (95.0-99.0) L 03/25/21 16:35 ABG O2 Content 17.3 (0.0-44) 03/25/21 16:35 ABG Base Excess 4.2 mmol/L (-2.0-3.0) H 03/25/21 16:35 ABG Hemoglobin 15.4 gm/dl (14.0-18.0) 03/25/21 16:35 ABG Carboxyhemoglobin 3.4 % (0.0-5.0) 03/25/21 16:35 ABG Methemoglobin 0.6 % (0.0-1.5) 03/25/21 16:35 Oxyhemoglobin 85.4 % (95.0-99.0) L 03/25/21 16:35 FiO2 32 % 03/25/21 16:35 Sodium 138 mmol/L (137-145) 03/26/21 07:13 Potassium 4.7 mmol/L (3.6-5.0) 03/26/21 07:13 Chloride 96.2 mmol/L (98-107) L 03/26/21 07:13 Carbon Dioxide 30 mmol/L (22-30) 03/26/21 07:13 Anion Gap 17 mmol/L 03/26/21 07:13 BUN 13 mg/dL (9-20) 03/26/21 07:13 Creatinine 0.5 mg/dL (0.8-1.3) L 03/26/21 07:13 Estimated GFR > 60 ml/min 03/26/21 07:13 BUN/Creatinine Ratio 26 % 03/26/21 07:13 Glucose 140 mg/dL (75-100) H 03/26/21 07:13 Calcium 9.2 mg/dL (8.4-10.2) 03/26/21 07:13 Total Bilirubin 0.30 mg/dL (0.1-1.2) 03/25/21 10:53 AST 19 units/L (5-40) 03/25/21 10:53 ALT 23 units/L (7-56) 03/25/21 10:53 Alkaline Phosphatase 117 units/L (35-129) 03/25/21 10:53 Total Creatine Kinase 78 units/L (55-170) 03/25/21 10:53 CK-MB (CK-2) 4.3 ng/mL (0.0-4.0) H 03/25/21 10:53 CK-MB (CK-2) Rel Index 5.5 (0-4) H 03/25/21 10:53 Troponin T < 0.010 ng/mL (0.00-0.029) 03/25/21 10:53 NT-Pro-B Natriuret Pep 43.13 pg/mL (0-900) 03/25/21 10:53 Total Protein 7.4 g/dL (6.3-8.2) 03/25/21 10:53 Albumin 4.1 g/dL (3.9-5) 03/25/21 10:53 Albumin/Globulin Ratio 1.2 % 03/25/21 10:53 Coronavirus (PCR) Negative (Negative) 03/26/21 Unknown Tomas/IV: Voiding Method Toilet Active Medications - Current Medications Current Medications: Generic Name Dose Route Start Last Admin Trade Name Freq PRN Reason Stop Dose Admin Acetaminophen 650 mg 03/25/21 15:17 Acetaminophen 325 Mg Tab PO Q4H PRN Pain MILD(1-3)/Fever >100.5/FLOYD Albuterol 2.5 mg 03/25/21 15:17 Albuterol 2.5 Mg/3 Ml Nebu IH Q4HRT PRN Shortness Of Breath Arformoterol Tartrate 15 mcg 03/27/21 13:15 03/27/21 13:22 Arformoterol 15 Mcg/2 Ml Nebu IH 15 mcg Q12HRT SYED Administration Budesonide 0.5 mg 03/27/21 13:15 03/27/21 13:22 Budesonide 0.5 Mg/2 Ml Nebu IH 0.5 mg Q12HRT SYED Administration Famotidine 20 mg 03/25/21 22:00 03/27/21 09:17 Famotidine 20 Mg Tab PO 20 mg BID SYED Administration Folic Acid 1 mg 03/25/21 20:00 03/27/21 09:17 Folic Acid 1 Mg Tab PO 1 mg QDAY SYED Administration Furosemide 20 mg 03/27/21 13:30 03/27/21 14:27 Furosemide 20 Mg/2 Ml Inj IV 03/27/21 18:00 20 mg ONCE@1330 NR Administration Hydromorphone HCl 0.5 mg 03/25/21 15:17 Hydromorphone 1 Mg/1 Ml Inj IV Q23H PRN Pain , Severe (7-10) Lorazepam 2 mg 03/25/21 19:42 03/27/21 09:17 Lorazepam 2 Mg/Ml Vial IV 2 mg Q1HR PRN Administration CIWA-Ar 8-15 Methylprednisolone Sodium Succinate 60 mg 03/27/21 14:00 03/27/21 14:27 Methylprednisolone Sod Succinate 125 Mg/2 Ml Inj IV 60 mg Q6H SYED Administration Multivitamins 1 each 03/25/21 19:42 03/27/21 09:17 Multivitamins ,Therapeutic Tab PO 1 each QDAY SYED Administration Ondansetron HCl 4 mg 03/25/21 15:17 Ondansetron 4 Mg/2 Ml Inj IV Q8H PRN Nausea And Vomiting Oxycodone/Acetaminophen 1 tab 03/25/21 15:17 03/27/21 14:27 Oxycodone /Acetaminophen 5-325mg Tab PO 1 tab Q16H PRN Administration Pain, Moderate (4-6) Sodium Chloride 10 ml 03/25/21 22:00 03/27/21 09:17 Sodium Chloride 0.9% 10 Ml Flush Syringe IV 10 ml BID SYED Administration Sodium Chloride 10 ml 03/25/21 15:17 Sodium Chloride 0.9% 10 Ml Flush Syringe IV PRN PRN LINE FLUSH Thiamine HCl 100 mg 03/25/21 20:00 03/27/21 09:17 Thiamine 100 Mg Tab PO 100 mg QDAY SYED Administration
[2021-03-28] MEDS: methylPREDNISolone Sod Succinate 125 MG/2 ML INJ IV SCH ×4 (01:58→22:14)
[2021-03-28] MEDS: LORazepam 2 MG/ML VIAL IV PRN (02:27)
[2021-03-28] MEDS: ARFORMOTEROL 15 MCG/2 ML NEBU IH SCH ×2 (09:00→20:49)
[2021-03-28] MEDS: BUDESONIDE 0.5 MG/2 ML NEBU IH SCH ×2 (09:00→20:49)
[2021-03-28] MEDS: FAMOTIDINE 20 MG TAB PO SCH ×2 (09:32→22:15)
[2021-03-28] MEDS: FOLIC ACID 1 MG TAB PO SCH (09:32)
[2021-03-28] MEDS: THIAMINE 100 MG TAB PO SCH (09:32)
[2021-03-28] MEDS: MULTIVITAMINS ,THERAPEUTIC TAB PO SCH (09:32)
--- NOTE | 2021-03-28 12:29 | Progress Note ---
Assessment and Plan 51 y/o obese male with acute respiratory failure thought secondary to COPD exacerbation. 1. Wean Solu-Medrol 2. Added BID Pulmicort and Brovana, will need probably LAMA/LABA/ICS combination on discharge. 3. Will require PFT and PSG as outpatient. 4. Wean Oxygen for sats >88% 5. Should be screened for TIANA as an outpatient 6. Guarded prognosis. 7. Smoking cessation counseling was provided Subjective Date of service: 03/28/21 Interval history: Patient awake somewhat groggy though. On oxygen denies any shortness of breath wants to go home. Objective Vital Signs - 12hr 03/28/21 03/28/21 03/28/21 05:28 07:42 08:38 Temperature 98.5 F 97.6 F Pulse Rate 113 H 113 H Pulse Rate [ Anterior Bilateral Throughout] Respiratory 16 22 23 Rate Respiratory Rate [Anterior Bilateral Throughout] Blood Pressure 125/82 134/93 O2 Sat by Pulse 83 L 92 92 Oximetry 03/28/21 03/28/21 09:00 11:02 Temperature 97.9 F Pulse Rate 112 H Pulse Rate [ 116 H Anterior Bilateral Throughout] Respiratory 22 Rate Respiratory 20 Rate [Anterior Bilateral Throughout] Blood Pressure 129/77 O2 Sat by Pulse 95 91 Oximetry Constitutional: no acute distress ENT: oropharynx moist, other (Crowded oropharynx) Neck: supple Ascultation: Bilateral: diminished breath sounds Cardiovascular: regular rate and rhythm Gastrointestinal: normoactive bowel sounds, soft, non-tender, other (Obese) Integumentary: normal Extremities: no cyanosis, no edema CBC and BMP: 03/26/21 07:13 03/26/21 07:13 ABG, PT/INR, D-dimer: ABG ABG pH 7.303 pH Units (7.350-7.450) L 03/25/21 16:35 ABG pCO2 68.0 mm Hg 03/25/21 16:35 ABG pO2 51.2 mm Hg (80.0-90.0) L 03/25/21 16:35 ABG O2 Saturation 89.0 % (95.0-99.0) L 03/25/21 16:35 PT/INR, D-dimer PT 12.9 Sec. (12.2-14.9) 03/25/21 10:53 INR 0.88 (0.87-1.13) 03/25/21 10:53 Abnormal lab findings: Abnormal Labs 03/25/21 03/25/21 03/25/21 10:53 10:53 16:35 WBC RBC 5.10 H Hct 46.1 H [place] % (Auto) 8.1 H Seg Neutrophils % 70.2 H Seg Neuts % (Manual) Lymphocytes % (Manual) Seg Neutrophils # Man Lymphocytes # (Manual) ABG pH 7.303 L ABG pO2 51.2 L ABG HCO3 32.9 H ABG O2 Saturation 89.0 L ABG Base Excess 4.2 H Oxyhemoglobin 85.4 L Potassium 5.1 H Chloride Creatinine 0.5 L Glucose 106 H CK-MB (CK-2) 4.3 H CK-MB (CK-2) Rel Index 5.5 H 03/26/21 03/26/21 07:13 07:13 WBC 17.7 H RBC 5.30 H Hct 48.0 H [place] % (Auto) Seg Neutrophils % Seg Neuts % (Manual) 90.0 H Lymphocytes % (Manual) 3.0 L Seg Neutrophils # Man 15.9 H Lymphocytes # (Manual) 0.5 L ABG pH ABG pO2 ABG HCO3 ABG O2 Saturation ABG Base Excess Oxyhemoglobin Potassium Chloride 96.2 L Creatinine 0.5 L Glucose 140 H CK-MB (CK-2) CK-MB (CK-2) Rel Index
--- NOTE | 2021-03-28 18:32 | Progress Note ---
Assessment and Plan Assessment and plan: --Acute hypoxemic respiratory failure Current Visit: Yes Status: Acute On 8 L nasal cannula oxygen today Wean as tolerated --Acute exacerbation of COPD; Current Visit: Yes Status: Acute Supplemental oxygen, pulse oximetry, nebulizer therapy, IV steroid therapy, inhalation steroids BiPAP as needed Pulmonary evaluation recommendation noted and appreciated --Obesity hypoventilation syndrome Current Visit: Yes Status: Acute Advised diet modification exercise as tolerated and weight reduction When medically stable Advised outpatient sleep evaluation to rule out obstructive sleep apnea --Ongoing tobacco use/ nicotine dependence Current Visit: Yes Status: Acute Smoking cessation counseling, risks and consequences of chronic tobacco use Discussed with the patient, also advised to use nicotine patch as needed I spent 70 minutes counseling the patient at the bedside Patient verbalized understanding --History of alcohol dependence Current Visit: Yes Status: Acute Advised to quit alcohol intake, advised Thiamine, folic acid, multivitamin daily, CIWA protocol as needed Patient strongly advised to seek alcohol Anonymous, alcohol withdrawal symptoms --DVT prophylaxis Current Visit: Yes Status: Acute Plan to address problem: SCD to bilateral lower extremities while in bed, patient is ambulatory --Advance care planning Current Visit: Yes Status: Acute Plan to address problem: Disease education conducted, care plan discussed, diagnoses discussed, prognosis discussed, patient is full code, patient acknowledges understanding and agreement with care plan, +30 minutes. We will closely monitor the patient and adjust the management as needed Plan of care reviewed with the patient and his nurse. Brief history and hospital course; 51 YO Male with Obesity Hypoventilation Syndrome, Nicotine Dependence, ETOH Dependence presents ED for evaluation. Patient reports "I cannot breathe". Patient states that he has experienced shortness of breath over the past 1 week with worsening symptoms over the past 4 days. Patient acknowledges increased productive cough with clear sputum, increased nebulizer use without relief, decreased exercise tolerance. EMS was notified and upon arrival the patient was found to be in distress and subsequent transported to [facility] for further care and evaluation of the aforementioned symptoms. The patient was seen and evaluated in the emergency department. All lab and imaging studies reviewed. Patient was found to have a pulse oximetry of 88% on room air with exertion which is consistent with acute hypoxemic respiratory failure suspected secondary to COPD exacerbation. Patient treated with nebulizer therapy and supplemental oxygen without significant relief of symptoms. Patient admitted to medical floor and initiated on COPD exacerbation protocol. Patient denies fever, chills, palpitation, skin rash, recent contact, known exposure to COVID-19, unilateral leg swelling, calf pain, prolonged travel/immobility, individual/family history of DVT/PE/bleeding/blood clotting disorders. No prior admission for review. No medication listed at time of admission reconciliation. Advanced care planning conducted in ED. 03/26: Patient seen and examined, counselling for 15 mins given on tobacco use disorder. Imaging studies CXR was clear with some mild cardiomegaly. Will obtain pulmonary consult considering 15 liters [place]. Continue current steroid therapy, await COVID19 TESTING. 03/27; COVID-19 test is negative, patient is severely hypoxemic requiring 15 L nasal cannula oxygen, wean as tolerated 03/28; patient is on 8 L nasal cannula oxygen, Pulmicort and Brovana added, continue Solu-Medrol at 60 mg every 6 hours Home O2 evaluation at discharge History Interval history: I have seen and examined the patient at the bedside Patient's chart and medications reviewed Patient is currently on 8 L nasal cannula supplemental oxygen In mild distress Hospitalist Physical - Constitutional Vitals: Temp Pulse Resp BP Pulse Ox 98.2 F 108 H 24 125/78 92 03/28/21 17:27 03/28/21 17:27 03/28/21 17:27 03/28/21 17:27 03/28/21 17:27 General appearance: Present: mild distress, well-nourished, obese - EENT Eyes: Present: PERRL, EOM intact - Neck Neck: Present: supple, normal ROM - Respiratory Respiratory effort: normal Respiratory: bilateral: diminished, rhonchi, negative: rales, wheezing - Cardiovascular Rhythm: regular Heart Sounds: Present: S1 & S2 - Extremities Extremities: no ischemia, No edema - Abdominal General gastrointestinal: soft, non-tender, non-distended, normal bowel sounds - Integumentary Integumentary: Present: clear, warm - Psychiatric Psychiatric: appropriate mood/affect, cooperative - Neurologic Neurologic: moves all extremities HEART Score - HEART Score Troponin: Troponin T < 0.010 ng/mL (0.00-0.029) 03/25/21 10:53 Results - Labs CBC & Chem 7: 03/26/21 07:13 03/26/21 07:13 Labs: Laboratory Last Values WBC 17.7 K/mm3 (4.5-11.0) H 03/26/21 07:13 RBC 5.30 M/mm3 (3.65-5.03) H 03/26/21 07:13 Hgb 15.1 gm/dl (11.8-15.2) 03/26/21 07:13 Hct 48.0 % (35.5-45.6) H 03/26/21 07:13 MCV 91 fl (84-94) 03/26/21 07:13 MCH 29 pg (28-32) 03/26/21 07:13 MCHC 32 % (32-34) 03/26/21 07:13 RDW 14.6 % (13.2-15.2) 03/26/21 07:13 Plt Count 409 K/mm3 (140-440) 03/26/21 07:13 Lymph % (Auto) 17.2 % (13.4-35.0) 03/25/21 10:53 [place] % (Auto) 8.1 % (0.0-7.3) H 03/25/21 10:53 Eos % (Auto) 3.5 % (0.0-4.3) 03/25/21 10:53 Baso % (Auto) 1.0 % (0.0-1.8) 03/25/21 10:53 Lymph # (Auto) 1.5 K/mm3 (1.2-5.4) 03/25/21 10:53 [place] # (Auto) 0.7 K/mm3 (0.0-0.8) 03/25/21 10:53 Eos # (Auto) 0.3 K/mm3 (0.0-0.4) 03/25/21 10:53 Baso # (Auto) 0.1 K/mm3 (0.0-0.1) 03/25/21 10:53 Add Manual Diff Complete 03/26/21 07:13 Total Counted 100 03/26/21 07:13 Seg Neutrophils % Family Service Worker 03/26/21 07:13 Seg Neuts % (Manual) 90.0 % (40.0-70.0) H 03/26/21 07:13 Band Neutrophils % 1.0 % 03/26/21 07:13 Lymphocytes % (Manual) 3.0 % (13.4-35.0) L 03/26/21 07:13 Monocytes % (Manual) 2.0 % (0.0-7.3) 03/26/21 07:13 Metamyelocytes % 3.0 % 03/26/21 07:13 Myelocytes % 1.0 % 03/26/21 07:13 Nucleated RBC % Not Reportable 03/26/21 07:13 Seg Neutrophils # 6.2 K/mm3 (1.8-7.7) 03/25/21 10:53 Seg Neutrophils # Man 15.9 K/mm3 (1.8-7.7) H 03/26/21 07:13 Band Neutrophils # 0.2 K/mm3 03/26/21 07:13 Lymphocytes # (Manual) 0.5 K/mm3 (1.2-5.4) L 03/26/21 07:13 Abs React Lymphs (Man) 0.0 K/mm3 03/26/21 07:13 Monocytes # (Manual) 0.4 K/mm3 (0.0-0.8) 03/26/21 07:13 Eosinophils # (Manual) 0.0 K/mm3 (0.0-0.4) 03/26/21 07:13 Basophils # (Manual) 0.0 K/mm3 (0.0-0.1) 03/26/21 07:13 Metamyelocytes # 0.5 K/mm3 03/26/21 07:13 Myelocytes # 0.2 K/mm3 03/26/21 07:13 Promyelocytes # 0.0 K/mm3 03/26/21 07:13 Blast Cells # 0.0 K/mm3 03/26/21 07:13 WBC Morphology Not Reportable 03/26/21 07:13 Hypersegmented Neuts Not Reportable 03/26/21 07:13 Hyposegmented Neuts Not Reportable 03/26/21 07:13 Hypogranular Neuts Not Reportable 03/26/21 07:13 Smudge Cells Not Reportable 03/26/21 07:13 Toxic Granulation Not Reportable 03/26/21 07:13 Toxic Vacuolation Not Reportable 03/26/21 07:13 Dohle Bodies Not Reportable 03/26/21 07:13 Pelger-Huet Anomaly Not Reportable 03/26/21 07:13 Janina Rods Not Reportable 03/26/21 07:13 Platelet Estimate Consistent w auto 03/26/21 07:13 Clumped Platelets Not Reportable 03/26/21 07:13 Plt Clumps, EDTA Not Reportable 03/26/21 07:13 Large Platelets Not Reportable 03/26/21 07:13 Giant Platelets Not Reportable 03/26/21 07:13 Platelet Satelliting Not Reportable 03/26/21 07:13 Plt Morphology Comment Not Reportable 03/26/21 07:13 RBC Morphology Normal 03/26/21 07:13 Dimorphic RBCs Not Reportable 03/26/21 07:13 Polychromasia Not Reportable 03/26/21 07:13 Hypochromasia Not Reportable 03/26/21 07:13 Poikilocytosis Not Reportable 03/26/21 07:13 Anisocytosis Not Reportable 03/26/21 07:13 Microcytosis Not Reportable 03/26/21 07:13 Macrocytosis Not Reportable 03/26/21 07:13 Spherocytes Not Reportable 03/26/21 07:13 Pappenheimer Bodies Not Reportable 03/26/21 07:13 Sickle Cells Not Reportable 03/26/21 07:13 Target Cells Not Reportable 03/26/21 07:13 Tear Drop Cells Not Reportable 03/26/21 07:13 Ovalocytes Not Reportable 03/26/21 07:13 Helmet Cells Not Reportable 03/26/21 07:13 [place] Bodies Not Reportable 03/26/21 07:13 [place] Rings Not Reportable 03/26/21 07:13 [place] Cells Not Reportable 03/26/21 07:13 Bite Cells Not Reportable 03/26/21 07:13 Crenated Cell Not Reportable 03/26/21 07:13 Elliptocytes Not Reportable 03/26/21 07:13 Acanthocytes (Spur) Not Reportable 03/26/21 07:13 Rouleaux Not Reportable 03/26/21 07:13 Hemoglobin C Crystals Not Reportable 03/26/21 07:13 Schistocytes Not Reportable 03/26/21 07:13 Malaria parasites Not Reportable 03/26/21 07:13 Just[place] Bodies Not Reportable 03/26/21 07:13 Hem Pathologist Commnt No 03/26/21 07:13 PT 12.9 Sec. (12.2-14.9) 03/25/21 10:53 INR 0.88 (0.87-1.13) 03/25/21 10:53 ABG pH 7.303 pH Units (7.350-7.450) L 03/25/21 16:35 ABG pCO2 68.0 mm Hg 03/25/21 16:35 ABG pO2 51.2 mm Hg (80.0-90.0) L 03/25/21 16:35 ABG HCO3 32.9 mmol/L (20.0-26.0) H 03/25/21 16:35 ABG O2 Saturation 89.0 % (95.0-99.0) L 03/25/21 16:35 ABG O2 Content 17.3 (0.0-44) 03/25/21 16:35 ABG Base Excess 4.2 mmol/L (-2.0-3.0) H 03/25/21 16:35 ABG Hemoglobin 15.4 gm/dl (14.0-18.0) 03/25/21 16:35 ABG Carboxyhemoglobin 3.4 % (0.0-5.0) 03/25/21 16:35 ABG Methemoglobin 0.6 % (0.0-1.5) 03/25/21 16:35 Oxyhemoglobin 85.4 % (95.0-99.0) L 03/25/21 16:35 FiO2 32 % 03/25/21 16:35 Sodium 138 mmol/L (137-145) 03/26/21 07:13 Potassium 4.7 mmol/L (3.6-5.0) 03/26/21 07:13 Chloride 96.2 mmol/L (98-107) L 03/26/21 07:13 Carbon Dioxide 30 mmol/L (22-30) 03/26/21 07:13 Anion Gap 17 mmol/L 03/26/21 07:13 BUN 13 mg/dL (9-20) 03/26/21 07:13 Creatinine 0.5 mg/dL (0.8-1.3) L 03/26/21 07:13 Estimated GFR > 60 ml/min 03/26/21 07:13 BUN/Creatinine Ratio 26 % 03/26/21 07:13 Glucose 140 mg/dL (75-100) H 03/26/21 07:13 Calcium 9.2 mg/dL (8.4-10.2) 03/26/21 07:13 Total Bilirubin 0.30 mg/dL (0.1-1.2) 03/25/21 10:53 AST 19 units/L (5-40) 03/25/21 10:53 ALT 23 units/L (7-56) 03/25/21 10:53 Alkaline Phosphatase 117 units/L (35-129) 03/25/21 10:53 Total Creatine Kinase 78 units/L (55-170) 03/25/21 10:53 CK-MB (CK-2) 4.3 ng/mL (0.0-4.0) H 03/25/21 10:53 CK-MB (CK-2) Rel Index 5.5 (0-4) H 03/25/21 10:53 Troponin T < 0.010 ng/mL (0.00-0.029) 03/25/21 10:53 NT-Pro-B Natriuret Pep 43.13 pg/mL (0-900) 03/25/21 10:53 Total Protein 7.4 g/dL (6.3-8.2) 03/25/21 10:53 Albumin 4.1 g/dL (3.9-5) 03/25/21 10:53 Albumin/Globulin Ratio 1.2 % 03/25/21 10:53 Coronavirus (PCR) Negative (Negative) 03/26/21 Unknown Tomas/IV: Voiding Method Toilet Active Medications - Current Medications Current Medications: Generic Name Dose Route Start Last Admin Trade Name Freq PRN Reason Stop Dose Admin Acetaminophen 650 mg 03/25/21 15:17 Acetaminophen 325 Mg Tab PO Q4H PRN Pain MILD(1-3)/Fever >100.5/FLOYD Albuterol 2.5 mg 03/25/21 15:17 Albuterol 2.5 Mg/3 Ml Nebu IH Q4HRT PRN Shortness Of Breath Arformoterol Tartrate 15 mcg 03/27/21 13:15 03/28/21 09:00 Arformoterol 15 Mcg/2 Ml Nebu IH 15 mcg Q12HRT SYDE Administration Budesonide 0.5 mg 03/27/21 13:15 03/28/21 09:00 Budesonide 0.5 Mg/2 Ml Nebu IH 0.5 mg Q12HRT SYED Administration Famotidine 20 mg 03/25/21 22:00 03/28/21 09:32 Famotidine 20 Mg Tab PO 20 mg BID SYED Administration Folic Acid 1 mg 03/25/21 20:00 03/28/21 09:32 Folic Acid 1 Mg Tab PO 1 mg QDAY SYED Administration Hydromorphone HCl 0.5 mg 03/25/21 15:17 Hydromorphone 1 Mg/1 Ml Inj IV Q23H PRN Pain , Severe (7-10) Lorazepam 2 mg 03/25/21 19:42 03/28/21 02:27 Lorazepam 2 Mg/Ml Vial IV 2 mg Q1HR PRN Administration Areli 8-15 Methylprednisolone Sodium Succinate 60 mg 03/27/21 14:00 03/28/21 13:26 Methylprednisolone Sod Succinate 125 Mg/2 Ml Inj IV 60 mg Q6H SYED Administration Multivitamins 1 each 03/25/21 19:42 03/28/21 09:32 Multivitamins ,Therapeutic Tab PO 1 each QDAY SYED Administration Ondansetron HCl 4 mg 03/25/21 15:17 Ondansetron 4 Mg/2 Ml Inj IV Q8H PRN Nausea And Vomiting Oxycodone/Acetaminophen 1 tab 03/25/21 15:17 03/27/21 14:27 Oxycodone /Acetaminophen 5-325mg Tab PO 1 tab Q16H PRN Administration Pain, Moderate (4-6) Sodium Chloride 10 ml 03/25/21 22:00 03/28/21 09:33 Sodium Chloride 0.9% 10 Ml Flush Syringe IV 10 ml BID SYED Administration Sodium Chloride 10 ml 03/25/21 15:17 Sodium Chloride 0.9% 10 Ml Flush Syringe IV PRN PRN LINE FLUSH Thiamine HCl 100 mg 03/25/21 20:00 03/28/21 09:32 Thiamine 100 Mg Tab PO 100 mg QDAY SYED Administration
[2021-03-29] MEDS: methylPREDNISolone Sod Succinate 125 MG/2 ML INJ IV SCH ×2 (01:55→10:12)
[2021-03-29] MEDS: BUDESONIDE 0.5 MG/2 ML NEBU IH SCH ×2 (08:40→20:06)
[2021-03-29] MEDS: ARFORMOTEROL 15 MCG/2 ML NEBU IH SCH ×2 (08:40→20:06)
[2021-03-29] MEDS: THIAMINE 100 MG TAB PO SCH (10:12)
[2021-03-29] MEDS: MULTIVITAMINS ,THERAPEUTIC TAB PO SCH (10:12)
[2021-03-29] MEDS: FOLIC ACID 1 MG TAB PO SCH (10:12)
[2021-03-29] MEDS: FAMOTIDINE 20 MG TAB PO SCH ×2 (10:12→21:27)
--- NOTE | 2021-03-29 12:11 | Progress Note ---
Assessment and Plan Assessment and plan: --Acute hypoxemic respiratory failure Current Visit: Yes Status: Acute On 8 L nasal cannula oxygen today Wean as tolerated --Acute exacerbation of COPD; Current Visit: Yes Status: Acute Supplemental oxygen, pulse oximetry, nebulizer therapy, IV steroid therapy, inhalation steroids BiPAP as needed Pulmonary evaluation recommendation noted and appreciated --Obesity hypoventilation syndrome Current Visit: Yes Status: Acute Advised diet modification exercise as tolerated and weight reduction When medically stable Advised outpatient sleep evaluation to rule out obstructive sleep apnea --Ongoing tobacco use/ nicotine dependence Current Visit: Yes Status: Acute Smoking cessation counseling, risks and consequences of chronic tobacco use Discussed with the patient, also advised to use nicotine patch as needed I spent 70 minutes counseling the patient at the bedside Patient verbalized understanding --History of alcohol dependence Current Visit: Yes Status: Acute Advised to quit alcohol intake, advised Thiamine, folic acid, multivitamin daily, CIWA protocol as needed Patient strongly advised to seek alcohol Anonymous, alcohol withdrawal symptoms --DVT prophylaxis Current Visit: Yes Status: Acute Plan to address problem: SCD to bilateral lower extremities while in bed, patient is ambulatory --Advance care planning Current Visit: Yes Status: Acute Plan to address problem: Disease education conducted, care plan discussed, diagnoses discussed, prognosis discussed, patient is full code, patient acknowledges understanding and agreement with care plan, +30 minutes. We will closely monitor the patient and adjust the management as needed Plan of care reviewed with the patient and his nurse. Brief history and hospital course; 51 YO Male with Obesity Hypoventilation Syndrome, Nicotine Dependence, ETOH Dependence presents ED for evaluation. Patient reports "I cannot breathe". Patient states that he has experienced shortness of breath over the past 1 week with worsening symptoms over the past 4 days. Patient acknowledges increased productive cough with clear sputum, increased nebulizer use without relief, decreased exercise tolerance. EMS was notified and upon arrival the patient was found to be in distress and subsequent transported to [facility] for further care and evaluation of the aforementioned symptoms. The patient was seen and evaluated in the emergency department. All lab and imaging studies reviewed. Patient was found to have a pulse oximetry of 88% on room air with exertion which is consistent with acute hypoxemic respiratory failure suspected secondary to COPD exacerbation. Patient treated with nebulizer therapy and supplemental oxygen without significant relief of symptoms. Patient admitted to medical floor and initiated on COPD exacerbation protocol. Patient denies fever, chills, palpitation, skin rash, recent contact, known exposure to COVID-19, unilateral leg swelling, calf pain, prolonged travel/immobility, individual/family history of DVT/PE/bleeding/blood clotting disorders. No prior admission for review. No medication listed at time of admission reconciliation. Advanced care planning conducted in ED. 03/26: Patient seen and examined, counselling for 15 mins given on tobacco use disorder. Imaging studies CXR was clear with some mild cardiomegaly. Will obtain pulmonary consult considering 15 liters [place]. Continue current steroid therapy, await COVID19 TESTING. 03/27; COVID-19 test is negative, patient is severely hypoxemic requiring 15 L nasal cannula oxygen, wean as tolerated 03/28; patient is on 8 L nasal cannula oxygen, Pulmicort and Brovana added, continue Solu-Medrol at 60 mg every 6 hours Home O2 evaluation at discharge 03/29; patient's oxygen requirement reduced to high flow nasal cannula at 6 L, wean as tolerated, home O2 evaluation prior to discharge History Interval history: I have seen and examined the patient at the bedside Patient's chart and medications reviewed Patient's oxygen requirement reduced to 6 L high flow nasal cannula O2 Denies any chest pain or shortness of breath Hospitalist Physical - Constitutional Vitals: Temp Pulse Resp BP Pulse Ox 98.0 F 101 H 20 127/96 94 03/29/21 06:20 03/29/21 08:40 03/29/21 08:40 03/29/21 06:20 03/29/21 08:40 General appearance: Present: no acute distress, well-nourished, obese - EENT Eyes: Present: PERRL, EOM intact - Neck Neck: Present: supple, normal ROM - Respiratory Respiratory effort: normal Respiratory: bilateral: diminished, rhonchi, negative: rales, wheezing - Cardiovascular Rhythm: regular Heart Sounds: Present: S1 & S2 - Extremities Extremities: no ischemia, No edema - Abdominal General gastrointestinal: soft, non-tender, non-distended, normal bowel sounds - Integumentary Integumentary: Present: clear, warm - Psychiatric Psychiatric: appropriate mood/affect, cooperative - Neurologic Neurologic: moves all extremities HEART Score - HEART Score Troponin: Troponin T < 0.010 ng/mL (0.00-0.029) 03/25/21 10:53 Results - Labs CBC & Chem 7: 03/26/21 07:13 03/26/21 07:13 Labs: Laboratory Last Values WBC 17.7 K/mm3 (4.5-11.0) H 03/26/21 07:13 RBC 5.30 M/mm3 (3.65-5.03) H 03/26/21 07:13 Hgb 15.1 gm/dl (11.8-15.2) 03/26/21 07:13 Hct 48.0 % (35.5-45.6) H 03/26/21 07:13 MCV 91 fl (84-94) 03/26/21 07:13 MCH 29 pg (28-32) 03/26/21 07:13 MCHC 32 % (32-34) 03/26/21 07:13 RDW 14.6 % (13.2-15.2) 03/26/21 07:13 Plt Count 409 K/mm3 (140-440) 03/26/21 07:13 Lymph % (Auto) 17.2 % (13.4-35.0) 03/25/21 10:53 [place] % (Auto) 8.1 % (0.0-7.3) H 03/25/21 10:53 Eos % (Auto) 3.5 % (0.0-4.3) 03/25/21 10:53 Baso % (Auto) 1.0 % (0.0-1.8) 03/25/21 10:53 Lymph # (Auto) 1.5 K/mm3 (1.2-5.4) 03/25/21 10:53 [place] # (Auto) 0.7 K/mm3 (0.0-0.8) 03/25/21 10:53 Eos # (Auto) 0.3 K/mm3 (0.0-0.4) 03/25/21 10:53 Baso # (Auto) 0.1 K/mm3 (0.0-0.1) 03/25/21 10:53 Add Manual Diff Complete 03/26/21 07:13 Total Counted 100 03/26/21 07:13 Seg Neutrophils % Ore Crushing Dust Collector 03/26/21 07:13 Seg Neuts % (Manual) 90.0 % (40.0-70.0) H 03/26/21 07:13 Band Neutrophils % 1.0 % 03/26/21 07:13 Lymphocytes % (Manual) 3.0 % (13.4-35.0) L 03/26/21 07:13 Monocytes % (Manual) 2.0 % (0.0-7.3) 03/26/21 07:13 Metamyelocytes % 3.0 % 03/26/21 07:13 Myelocytes % 1.0 % 03/26/21 07:13 Nucleated RBC % Not Reportable 03/26/21 07:13 Seg Neutrophils # 6.2 K/mm3 (1.8-7.7) 03/25/21 10:53 Seg Neutrophils # Man 15.9 K/mm3 (1.8-7.7) H 03/26/21 07:13 Band Neutrophils # 0.2 K/mm3 03/26/21 07:13 Lymphocytes # (Manual) 0.5 K/mm3 (1.2-5.4) L 03/26/21 07:13 Abs React Lymphs (Man) 0.0 K/mm3 03/26/21 07:13 Monocytes # (Manual) 0.4 K/mm3 (0.0-0.8) 03/26/21 07:13 Eosinophils # (Manual) 0.0 K/mm3 (0.0-0.4) 03/26/21 07:13 Basophils # (Manual) 0.0 K/mm3 (0.0-0.1) 03/26/21 07:13 Metamyelocytes # 0.5 K/mm3 03/26/21 07:13 Myelocytes # 0.2 K/mm3 03/26/21 07:13 Promyelocytes # 0.0 K/mm3 03/26/21 07:13 Blast Cells # 0.0 K/mm3 03/26/21 07:13 WBC Morphology Not Reportable 03/26/21 07:13 Hypersegmented Neuts Not Reportable 03/26/21 07:13 Hyposegmented Neuts Not Reportable 03/26/21 07:13 Hypogranular Neuts Not Reportable 03/26/21 07:13 Smudge Cells Not Reportable 03/26/21 07:13 Toxic Granulation Not Reportable 03/26/21 07:13 Toxic Vacuolation Not Reportable 03/26/21 07:13 Dohle Bodies Not Reportable 03/26/21 07:13 Pelger-Huet Anomaly Not Reportable 03/26/21 07:13 Janina Rods Not Reportable 03/26/21 07:13 Platelet Estimate Consistent w auto 03/26/21 07:13 Clumped Platelets Not Reportable 03/26/21 07:13 Plt Clumps, EDTA Not Reportable 03/26/21 07:13 Large Platelets Not Reportable 03/26/21 07:13 Giant Platelets Not Reportable 03/26/21 07:13 Platelet Satelliting Not Reportable 03/26/21 07:13 Plt Morphology Comment Not Reportable 03/26/21 07:13 RBC Morphology Normal 03/26/21 07:13 Dimorphic RBCs Not Reportable 03/26/21 07:13 Polychromasia Not Reportable 03/26/21 07:13 Hypochromasia Not Reportable 03/26/21 07:13 Poikilocytosis Not Reportable 03/26/21 07:13 Anisocytosis Not Reportable 03/26/21 07:13 Microcytosis Not Reportable 03/26/21 07:13 Macrocytosis Not Reportable 03/26/21 07:13 Spherocytes Not Reportable 03/26/21 07:13 Pappenheimer Bodies Not Reportable 03/26/21 07:13 Sickle Cells Not Reportable 03/26/21 07:13 Target Cells Not Reportable 03/26/21 07:13 Tear Drop Cells Not Reportable 03/26/21 07:13 Ovalocytes Not Reportable 03/26/21 07:13 Helmet Cells Not Reportable 03/26/21 07:13 [place] Bodies Not Reportable 03/26/21 07:13 [place] Rings Not Reportable 03/26/21 07:13 [place] Cells Not Reportable 03/26/21 07:13 Bite Cells Not Reportable 03/26/21 07:13 Crenated Cell Not Reportable 03/26/21 07:13 Elliptocytes Not Reportable 03/26/21 07:13 Acanthocytes (Spur) Not Reportable 03/26/21 07:13 Rouleaux Not Reportable 03/26/21 07:13 Hemoglobin C Crystals Not Reportable 03/26/21 07:13 Schistocytes Not Reportable 03/26/21 07:13 Malaria parasites Not Reportable 03/26/21 07:13 [place] Bodies Not Reportable 03/26/21 07:13 Hem Pathologist Commnt No 03/26/21 07:13 PT 12.9 Sec. (12.2-14.9) 03/25/21 10:53 INR 0.88 (0.87-1.13) 03/25/21 10:53 ABG pH 7.303 pH Units (7.350-7.450) L 03/25/21 16:35 ABG pCO2 68.0 mm Hg 03/25/21 16:35 ABG pO2 51.2 mm Hg (80.0-90.0) L 03/25/21 16:35 ABG HCO3 32.9 mmol/L (20.0-26.0) H 03/25/21 16:35 ABG O2 Saturation 89.0 % (95.0-99.0) L 03/25/21 16:35 ABG O2 Content 17.3 (0.0-44) 03/25/21 16:35 ABG Base Excess 4.2 mmol/L (-2.0-3.0) H 03/25/21 16:35 ABG Hemoglobin 15.4 gm/dl (14.0-18.0) 03/25/21 16:35 ABG Carboxyhemoglobin 3.4 % (0.0-5.0) 03/25/21 16:35 ABG Methemoglobin 0.6 % (0.0-1.5) 03/25/21 16:35 Oxyhemoglobin 85.4 % (95.0-99.0) L 03/25/21 16:35 FiO2 32 % 03/25/21 16:35 Sodium 138 mmol/L (137-145) 03/26/21 07:13 Potassium 4.7 mmol/L (3.6-5.0) 03/26/21 07:13 Chloride 96.2 mmol/L (98-107) L 03/26/21 07:13 Carbon Dioxide 30 mmol/L (22-30) 03/26/21 07:13 Anion Gap 17 mmol/L 03/26/21 07:13 BUN 13 mg/dL (9-20) 03/26/21 07:13 Creatinine 0.5 mg/dL (0.8-1.3) L 03/26/21 07:13 Estimated GFR > 60 ml/min 03/26/21 07:13 BUN/Creatinine Ratio 26 % 03/26/21 07:13 Glucose 140 mg/dL (75-100) H 03/26/21 07:13 Calcium 9.2 mg/dL (8.4-10.2) 03/26/21 07:13 Total Bilirubin 0.30 mg/dL (0.1-1.2) 03/25/21 10:53 AST 19 units/L (5-40) 03/25/21 10:53 ALT 23 units/L (7-56) 03/25/21 10:53 Alkaline Phosphatase 117 units/L (35-129) 03/25/21 10:53 Total Creatine Kinase 78 units/L (55-170) 03/25/21 10:53 CK-MB (CK-2) 4.3 ng/mL (0.0-4.0) H 03/25/21 10:53 CK-MB (CK-2) Rel Index 5.5 (0-4) H 03/25/21 10:53 Troponin T < 0.010 ng/mL (0.00-0.029) 03/25/21 10:53 NT-Pro-B Natriuret Pep 43.13 pg/mL (0-900) 03/25/21 10:53 Total Protein 7.4 g/dL (6.3-8.2) 03/25/21 10:53 Albumin 4.1 g/dL (3.9-5) 03/25/21 10:53 Albumin/Globulin Ratio 1.2 % 03/25/21 10:53 Coronavirus (PCR) Negative (Negative) 03/26/21 Unknown Tomas/IV: Voiding Method Toilet Active Medications - Current Medications Current Medications: Generic Name Dose Route Start Last Admin Trade Name Freq PRN Reason Stop Dose Admin Acetaminophen 650 mg 03/25/21 15:17 Acetaminophen 325 Mg Tab PO Q4H PRN Pain MILD(1-3)/Fever >100.5/FLOYD Albuterol 2.5 mg 03/25/21 15:17 Albuterol 2.5 Mg/3 Ml Nebu IH Q4HRT PRN Shortness Of Breath Arformoterol Tartrate 15 mcg 03/27/21 13:15 03/29/21 08:40 Arformoterol 15 Mcg/2 Ml Nebu IH 15 mcg Q12HRT SYED Administration Budesonide 0.5 mg 03/27/21 13:15 03/29/21 08:40 Budesonide 0.5 Mg/2 Ml Nebu IH 0.5 mg Q12HRT SYED Administration Famotidine 20 mg 03/25/21 22:00 03/29/21 10:12 Famotidine 20 Mg Tab PO 20 mg BID SYED Administration Folic Acid 1 mg 03/25/21 20:00 03/29/21 10:12 Folic Acid 1 Mg Tab PO 1 mg QDAY SYED Administration Hydromorphone HCl 0.5 mg 03/25/21 15:17 Hydromorphone 1 Mg/1 Ml Inj IV Q23H PRN Pain , Severe (7-10) Lorazepam 2 mg 03/25/21 19:42 03/28/21 02:27 Lorazepam 2 Mg/Ml Vial IV 2 mg Q1HR PRN Administration CIMELVIN-Yuniel 8-15 Methylprednisolone Sodium Succinate 60 mg 03/27/21 14:00 03/29/21 10:12 Methylprednisolone Sod Succinate 125 Mg/2 Ml Inj IV 60 mg Q6H SYED Administration Multivitamins 1 each 03/25/21 19:42 03/29/21 10:12 Multivitamins ,Therapeutic Tab PO 1 each QDAY SYED Administration Ondansetron HCl 4 mg 03/25/21 15:17 Ondansetron 4 Mg/2 Ml Inj IV Q8H PRN Nausea And Vomiting Oxycodone/Acetaminophen 1 tab 03/25/21 15:17 03/27/21 14:27 Oxycodone /Acetaminophen 5-325mg Tab PO 1 tab Q16H PRN Administration Pain, Moderate (4-6) Sodium Chloride 10 ml 03/25/21 22:00 03/29/21 10:12 Sodium Chloride 0.9% 10 Ml Flush Syringe IV 10 ml BID SYED Administration Sodium Chloride 10 ml 03/25/21 15:17 Sodium Chloride 0.9% 10 Ml Flush Syringe IV PRN PRN LINE FLUSH Thiamine HCl 100 mg 03/25/21 20:00 03/29/21 10:12 Thiamine 100 Mg Tab PO 100 mg QDAY SYED Administration
--- NOTE | 2021-03-29 13:14 | Progress Note ---
Assessment and Plan 51 y/o obese male with acute respiratory failure thought secondary to COPD exacerbation. 1. Wean Solu-Medrol->PO prednisone 2. Added BID Pulmicort and Brovana, will need probably LAMA/LABA/ICS combination on discharge. 3. Will require PFT and PSG as outpatient. 4. Wean Oxygen for sats >88% 5. Should be screened for TIANA as an outpatient 6. Guarded prognosis. 7. Smoking cessation counseling was provided 8. Will likely require home oxygen therapy upon discharge Subjective Date of service: 03/29/21 Interval history: Still very short of breath with minimal exertion. Remains on oxygen currently on 6 L nasal cannula. Objective Vital Signs - 12hr 03/29/21 03/29/21 03/29/21 06:20 08:20 08:40 Temperature 98.0 F Pulse Rate 100 H Pulse Rate [ 101 H Anterior Bilateral Throughout] Respiratory 20 21 Rate Respiratory 20 Rate [Anterior Bilateral Throughout] Blood Pressure 127/96 O2 Sat by Pulse 93 96 94 Oximetry 03/29/21 11:22 Temperature 97.6 F Pulse Rate 110 H Pulse Rate [ Anterior Bilateral Throughout] Respiratory 24 Rate Respiratory Rate [Anterior Bilateral Throughout] Blood Pressure 144/113 O2 Sat by Pulse 92 Oximetry Constitutional: no acute distress ENT: oropharynx moist, other (Crowded oropharynx) Neck: supple Ascultation: Bilateral: diminished breath sounds Cardiovascular: regular rate and rhythm Gastrointestinal: normoactive bowel sounds, soft, non-tender, other (Obese) Integumentary: normal Extremities: no cyanosis, no edema CBC and BMP: 03/26/21 07:13 03/26/21 07:13 ABG, PT/INR, D-dimer: ABG ABG pH 7.303 pH Units (7.350-7.450) L 03/25/21 16:35 ABG pCO2 68.0 mm Hg 03/25/21 16:35 ABG pO2 51.2 mm Hg (80.0-90.0) L 03/25/21 16:35 ABG O2 Saturation 89.0 % (95.0-99.0) L 03/25/21 16:35 PT/INR, D-dimer PT 12.9 Sec. (12.2-14.9) 03/25/21 10:53 INR 0.88 (0.87-1.13) 03/25/21 10:53 Abnormal lab findings: Abnormal Labs 03/25/21 03/25/21 03/25/21 10:53 10:53 16:35 WBC RBC 5.10 H Hct 46.1 H [place] % (Auto) 8.1 H Seg Neutrophils % 70.2 H Seg Neuts % (Manual) Lymphocytes % (Manual) Seg Neutrophils # Man Lymphocytes # (Manual) ABG pH 7.303 L ABG pO2 51.2 L ABG HCO3 32.9 H ABG O2 Saturation 89.0 L ABG Base Excess 4.2 H Oxyhemoglobin 85.4 L Potassium 5.1 H Chloride Creatinine 0.5 L Glucose 106 H CK-MB (CK-2) 4.3 H CK-MB (CK-2) Rel Index 5.5 H 03/26/21 03/26/21 07:13 07:13 WBC 17.7 H RBC 5.30 H Hct 48.0 H [place] % (Auto) Seg Neutrophils % Seg Neuts % (Manual) 90.0 H Lymphocytes % (Manual) 3.0 L Seg Neutrophils # Man 15.9 H Lymphocytes # (Manual) 0.5 L ABG pH ABG pO2 ABG HCO3 ABG O2 Saturation ABG Base Excess Oxyhemoglobin Potassium Chloride 96.2 L Creatinine 0.5 L Glucose 140 H CK-MB (CK-2) CK-MB (CK-2) Rel Index
[2021-03-29 21:26] VITALS: BP 136/100
[2021-03-29] MEDS: methylPREDNISolone Sod Succinate 40 MG/1 ML INJ IV SCH (21:27)
[2021-03-30] MEDS: ARFORMOTEROL 15 MCG/2 ML NEBU IH SCH (07:53)
[2021-03-30] MEDS: BUDESONIDE 0.5 MG/2 ML NEBU IH SCH (07:53)
--- NOTE | 2021-03-30 09:00 | Progress Note ---
Assessment and Plan Assessment and plan: --Acute hypoxemic respiratory failure Current Visit: Yes Status: Acute On 8 L nasal cannula oxygen today Wean as tolerated --Acute exacerbation of COPD; Current Visit: Yes Status: Acute Supplemental oxygen, pulse oximetry, nebulizer therapy, IV steroid therapy, inhalation steroids BiPAP as needed Pulmonary evaluation recommendation noted and appreciated --Obesity hypoventilation syndrome Current Visit: Yes Status: Acute Advised diet modification exercise as tolerated and weight reduction When medically stable Advised outpatient sleep evaluation to rule out obstructive sleep apnea --Ongoing tobacco use/ nicotine dependence Current Visit: Yes Status: Acute Smoking cessation counseling, risks and consequences of chronic tobacco use Discussed with the patient, also advised to use nicotine patch as needed I spent 70 minutes counseling the patient at the bedside Patient verbalized understanding --History of alcohol dependence Current Visit: Yes Status: Acute Advised to quit alcohol intake, advised Thiamine, folic acid, multivitamin daily, CIWA protocol as needed Patient strongly advised to seek alcohol Anonymous, alcohol withdrawal symptoms --DVT prophylaxis Current Visit: Yes Status: Acute Plan to address problem: SCD to bilateral lower extremities while in bed, patient is ambulatory --Advance care planning Current Visit: Yes Status: Acute Plan to address problem: Disease education conducted, care plan discussed, diagnoses discussed, prognosis discussed, patient is full code, patient acknowledges understanding and agreement with care plan, +30 minutes. We will closely monitor the patient and adjust the management as needed Plan of care reviewed with the patient and his nurse. Brief history and hospital course; 51 YO Male with Obesity Hypoventilation Syndrome, Nicotine Dependence, ETOH Dependence presents ED for evaluation. Patient reports "I cannot breathe". Patient states that he has experienced shortness of breath over the past 1 week with worsening symptoms over the past 4 days. Patient acknowledges increased productive cough with clear sputum, increased nebulizer use without relief, decreased exercise tolerance. EMS was notified and upon arrival the patient was found to be in distress and subsequent transported to [facility] for further care and evaluation of the aforementioned symptoms. The patient was seen and evaluated in the emergency department. All lab and imaging studies reviewed. Patient was found to have a pulse oximetry of 88% on room air with exertion which is consistent with acute hypoxemic respiratory failure suspected secondary to COPD exacerbation. Patient treated with nebulizer therapy and supplemental oxygen without significant relief of symptoms. Patient admitted to medical floor and initiated on COPD exacerbation protocol. Patient denies fever, chills, palpitation, skin rash, recent contact, known exposure to COVID-19, unilateral leg swelling, calf pain, prolonged travel/immobility, individual/family history of DVT/PE/bleeding/blood clotting disorders. No prior admission for review. No medication listed at time of admission reconciliation. Advanced care planning conducted in ED. 03/26: Patient seen and examined, counselling for 15 mins given on tobacco use disorder. Imaging studies CXR was clear with some mild cardiomegaly. Will obtain pulmonary consult considering 15 liters [place]. Continue current steroid therapy, await COVID19 TESTING. 03/27; COVID-19 test is negative, patient is severely hypoxemic requiring 15 L nasal cannula oxygen, wean as tolerated 03/28; patient is on 8 L nasal cannula oxygen, Pulmicort and Brovana added, continue Solu-Medrol at 60 mg every 6 hours Home O2 evaluation at discharge 03/29; patient's oxygen requirement reduced to high flow nasal cannula at 6 L, wean as tolerated, home O2 evaluation prior to discharge 03/30; patient continues to require high flow nasal cannula oxygen Hospitalist Physical - Constitutional Vitals: Temp Pulse Resp BP Pulse Ox 97.8 F 100 H 18 136/100 95 03/29/21 20:46 03/29/21 20:46 03/29/21 20:46 03/29/21 20:46 03/29/21 22:00 General appearance: Present: no acute distress, well-nourished, obese HEART Score - HEART Score Troponin: Troponin T < 0.010 ng/mL (0.00-0.029) 03/25/21 10:53 Results - Labs CBC & Chem 7: 03/26/21 07:13 03/26/21 07:13 Labs: Laboratory Last Values WBC 17.7 K/mm3 (4.5-11.0) H 03/26/21 07:13 RBC 5.30 M/mm3 (3.65-5.03) H 03/26/21 07:13 Hgb 15.1 gm/dl (11.8-15.2) 03/26/21 07:13 Hct 48.0 % (35.5-45.6) H 03/26/21 07:13 MCV 91 fl (84-94) 03/26/21 07:13 MCH 29 pg (28-32) 03/26/21 07:13 MCHC 32 % (32-34) 03/26/21 07:13 RDW 14.6 % (13.2-15.2) 03/26/21 07:13 Plt Count 409 K/mm3 (140-440) 03/26/21 07:13 Lymph % (Auto) 17.2 % (13.4-35.0) 03/25/21 10:53 [place] % (Auto) 8.1 % (0.0-7.3) H 03/25/21 10:53 Eos % (Auto) 3.5 % (0.0-4.3) 03/25/21 10:53 Baso % (Auto) 1.0 % (0.0-1.8) 03/25/21 10:53 Lymph # (Auto) 1.5 K/mm3 (1.2-5.4) 03/25/21 10:53 [place] # (Auto) 0.7 K/mm3 (0.0-0.8) 03/25/21 10:53 Eos # (Auto) 0.3 K/mm3 (0.0-0.4) 03/25/21 10:53 Baso # (Auto) 0.1 K/mm3 (0.0-0.1) 03/25/21 10:53 Add Manual Diff Complete 03/26/21 07:13 Total Counted 100 03/26/21 07:13 Seg Neutrophils % Annealing 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 Operator 03/26/21 07:13 Seg Neuts % (Manual) 90.0 % (40.0-70.0) H 03/26/21 07:13 Band Neutrophils % 1.0 % 03/26/21 07:13 Lymphocytes % (Manual) 3.0 % (13.4-35.0) L 03/26/21 07:13 Monocytes % (Manual) 2.0 % (0.0-7.3) 03/26/21 07:13 Metamyelocytes % 3.0 % 03/26/21 07:13 Myelocytes % 1.0 % 03/26/21 07:13 Nucleated RBC % Not Reportable 03/26/21 07:13 Seg Neutrophils # 6.2 K/mm3 (1.8-7.7) 03/25/21 10:53 Seg Neutrophils # Man 15.9 K/mm3 (1.8-7.7) H 03/26/21 07:13 Band Neutrophils # 0.2 K/mm3 03/26/21 07:13 Lymphocytes # (Manual) 0.5 K/mm3 (1.2-5.4) L 03/26/21 07:13 Abs React Lymphs (Man) 0.0 K/mm3 03/26/21 07:13 Monocytes # (Manual) 0.4 K/mm3 (0.0-0.8) 03/26/21 07:13 Eosinophils # (Manual) 0.0 K/mm3 (0.0-0.4) 03/26/21 07:13 Basophils # (Manual) 0.0 K/mm3 (0.0-0.1) 03/26/21 07:13 Metamyelocytes # 0.5 K/mm3 03/26/21 07:13 Myelocytes # 0.2 K/mm3 03/26/21 07:13 Promyelocytes # 0.0 K/mm3 03/26/21 07:13 Blast Cells # 0.0 K/mm3 03/26/21 07:13 WBC Morphology Not Reportable 03/26/21 07:13 Hypersegmented Neuts Not Reportable 03/26/21 07:13 Hyposegmented Neuts Not Reportable 03/26/21 07:13 Hypogranular Neuts Not Reportable 03/26/21 07:13 Smudge Cells Not Reportable 03/26/21 07:13 Toxic Granulation Not Reportable 03/26/21 07:13 Toxic Vacuolation Not Reportable 03/26/21 07:13 Dohle Bodies Not Reportable 03/26/21 07:13 Pelger-Huet Anomaly Not Reportable 03/26/21 07:13 Janina Rods Not Reportable 03/26/21 07:13 Platelet Estimate Consistent w auto 03/26/21 07:13 Clumped Platelets Not Reportable 03/26/21 07:13 Plt Clumps, EDTA Not Reportable 03/26/21 07:13 Large Platelets Not Reportable 03/26/21 07:13 Giant Platelets Not Reportable 03/26/21 07:13 Platelet Satelliting Not Reportable 03/26/21 07:13 Plt Morphology Comment Not Reportable 03/26/21 07:13 RBC Morphology Normal 03/26/21 07:13 Dimorphic RBCs Not Reportable 03/26/21 07:13 Polychromasia Not Reportable 03/26/21 07:13 Hypochromasia Not Reportable 03/26/21 07:13 Poikilocytosis Not Reportable 03/26/21 07:13 Anisocytosis Not Reportable 03/26/21 07:13 Microcytosis Not Reportable 03/26/21 07:13 Macrocytosis Not Reportable 03/26/21 07:13 Spherocytes Not Reportable 03/26/21 07:13 Pappenheimer Bodies Not Reportable 03/26/21 07:13 Sickle Cells Not Reportable 03/26/21 07:13 Target Cells Not Reportable 03/26/21 07:13 Tear Drop Cells Not Reportable 03/26/21 07:13 Ovalocytes Not Reportable 03/26/21 07:13 Helmet Cells Not Reportable 03/26/21 07:13 Ruvalcaba-Foyil Bodies Not Reportable 03/26/21 07:13 [place] Rings Not Reportable 03/26/21 07:13 [place] Cells Not Reportable 03/26/21 07:13 Bite Cells Not Reportable 03/26/21 07:13 Crenated Cell Not Reportable 03/26/21 07:13 Elliptocytes Not Reportable 03/26/21 07:13 Acanthocytes (Spur) Not Reportable 03/26/21 07:13 Rouleaux Not Reportable 03/26/21 07:13 Hemoglobin C Crystals Not Reportable 03/26/21 07:13 Schistocytes Not Reportable 03/26/21 07:13 Malaria parasites Not Reportable 03/26/21 07:13 Justyn Bodies Not Reportable 03/26/21 07:13 Hem Pathologist Commnt No 03/26/21 07:13 PT 12.9 Sec. (12.2-14.9) 03/25/21 10:53 INR 0.88 (0.87-1.13) 03/25/21 10:53 ABG pH 7.303 pH Units (7.350-7.450) L 03/25/21 16:35 ABG pCO2 68.0 mm Hg 03/25/21 16:35 ABG pO2 51.2 mm Hg (80.0-90.0) L 03/25/21 16:35 ABG HCO3 32.9 mmol/L (20.0-26.0) H 03/25/21 16:35 ABG O2 Saturation 89.0 % (95.0-99.0) L 03/25/21 16:35 ABG O2 Content 17.3 (0.0-44) 03/25/21 16:35 ABG Base Excess 4.2 mmol/L (-2.0-3.0) H 03/25/21 16:35 ABG Hemoglobin 15.4 gm/dl (14.0-18.0) 03/25/21 16:35 ABG Carboxyhemoglobin 3.4 % (0.0-5.0) 03/25/21 16:35 ABG Methemoglobin 0.6 % (0.0-1.5) 03/25/21 16:35 Oxyhemoglobin 85.4 % (95.0-99.0) L 03/25/21 16:35 FiO2 32 % 03/25/21 16:35 Sodium 138 mmol/L (137-145) 03/26/21 07:13 Potassium 4.7 mmol/L (3.6-5.0) 03/26/21 07:13 Chloride 96.2 mmol/L (98-107) L 03/26/21 07:13 Carbon Dioxide 30 mmol/L (22-30) 03/26/21 07:13 Anion Gap 17 mmol/L 03/26/21 07:13 BUN 13 mg/dL (9-20) 03/26/21 07:13 Creatinine 0.5 mg/dL (0.8-1.3) L 03/26/21 07:13 Estimated GFR > 60 ml/min 03/26/21 07:13 BUN/Creatinine Ratio 26 % 03/26/21 07:13 Glucose 140 mg/dL (75-100) H 03/26/21 07:13 Calcium 9.2 mg/dL (8.4-10.2) 03/26/21 07:13 Total Bilirubin 0.30 mg/dL (0.1-1.2) 03/25/21 10:53 AST 19 units/L (5-40) 03/25/21 10:53 ALT 23 units/L (7-56) 03/25/21 10:53 Alkaline Phosphatase 117 units/L (35-129) 03/25/21 10:53 Total Creatine Kinase 78 units/L (55-170) 03/25/21 10:53 CK-MB (CK-2) 4.3 ng/mL (0.0-4.0) H 03/25/21 10:53 CK-MB (CK-2) Rel Index 5.5 (0-4) H 03/25/21 10:53 Troponin T < 0.010 ng/mL (0.00-0.029) 03/25/21 10:53 NT-Pro-B Natriuret Pep 43.13 pg/mL (0-900) 03/25/21 10:53 Total Protein 7.4 g/dL (6.3-8.2) 03/25/21 10:53 Albumin 4.1 g/dL (3.9-5) 03/25/21 10:53 Albumin/Globulin Ratio 1.2 % 03/25/21 10:53 Coronavirus (PCR) Negative (Negative) 03/26/21 Unknown Tomas/IV: Voiding Method Toilet Active Medications - Current Medications Current Medications: Generic Name Dose Route Start Last Admin Trade Name Freq PRN Reason Stop Dose Admin Acetaminophen 650 mg 03/25/21 15:17 Acetaminophen 325 Mg Tab PO Q4H PRN Pain MILD(1-3)/Fever >100.5/FLOYD Albuterol 2.5 mg 03/25/21 15:17 Albuterol 2.5 Mg/3 Ml Nebu IH Q4HRT PRN Shortness Of Breath Arformoterol Tartrate 15 mcg 03/27/21 13:15 03/30/21 07:53 Arformoterol 15 Mcg/2 Ml Nebu IH 15 mcg Q12HRT SYED Administration Budesonide 0.5 mg 03/27/21 13:15 03/30/21 07:53 Budesonide 0.5 Mg/2 Ml Nebu IH 0.5 mg Q12HRT SYED Administration Famotidine 20 mg 03/25/21 22:00 03/29/21 21:27 Famotidine 20 Mg Tab PO 20 mg BID SYED Administration Folic Acid 1 mg 03/25/21 20:00 03/29/21 10:12 Folic Acid 1 Mg Tab PO 1 mg QDAY SYED Administration Hydromorphone HCl 0.5 mg 03/25/21 15:17 Hydromorphone 1 Mg/1 Ml Inj IV Q23H PRN Pain , Severe (7-10) Lorazepam 2 mg 03/25/21 19:42 03/28/21 02:27 Lorazepam 2 Mg/Ml Vial IV 2 mg Q1HR PRN Administration Areli 8-15 Methylprednisolone Sodium Succinate 40 mg 03/29/21 22:00 03/29/21 21:27 Methylprednisolone Sod Succinate 40 Mg/1 Ml Inj IV 40 mg Q12HR SYED Administration Multivitamins 1 each 03/25/21 19:42 03/29/21 10:12 Multivitamins ,Therapeutic Tab PO 1 each QDAY SYED Administration Ondansetron HCl 4 mg 03/25/21 15:17 Ondansetron 4 Mg/2 Ml Inj IV Q8H PRN Nausea And Vomiting Oxycodone/Acetaminophen 1 tab 03/25/21 15:17 03/27/21 14:27 Oxycodone /Acetaminophen 5-325mg Tab PO 1 tab Q16H PRN Administration Pain, Moderate (4-6) Sodium Chloride 10 ml 03/25/21 22:00 03/29/21 21:27 Sodium Chloride 0.9% 10 Ml Flush Syringe IV 10 ml BID SYED Administration Sodium Chloride 10 ml 03/25/21 15:17 Sodium Chloride 0.9% 10 Ml Flush Syringe IV PRN PRN LINE FLUSH Thiamine HCl 100 mg 03/25/21 20:00 03/29/21 10:12 Thiamine 100 Mg Tab PO 100 mg QDAY SYED Administration
[2021-03-30] MEDS: MULTIVITAMINS ,THERAPEUTIC TAB PO SCH (10:38)
[2021-03-30] MEDS: FOLIC ACID 1 MG TAB PO SCH (10:38)
[2021-03-30] MEDS: FAMOTIDINE 20 MG TAB PO SCH (10:39)
[2021-03-30] MEDS: methylPREDNISolone Sod Succinate 40 MG/1 ML INJ IV SCH (10:39)
[2021-03-30] MEDS: THIAMINE 100 MG TAB PO SCH (10:49)
--- NOTE | 2021-03-30 11:08 | Progress Note ---
Assessment and Plan 51 y/o obese male with acute respiratory failure thought secondary to COPD exacerbation. 03/30/21: Suggest changing to Prednisone 60 daily and taper as follows: 60 daily for 3 days, 40 daily for 3 days, 20 daily for 3 days then stop. At discharge would send patient out on Symbicort 160 2puffs BID along with albuterol vs combivent rescue inhaler. Will need walk test prior to discharge. 1. Changed solumedrol to 60q6 2. Added BID Pulmicort and Brovana 3. Lasix therapy IV x1 4. Wean Oxygen for sats >88% 5. Should be screened for TIANA as an outpatient 6. Guarded prognosis. Subjective Date of service: 03/30/21 Interval history: Down to 3 liters now. Good sats. Objective Vital Signs - 12hr 03/30/21 07:53 Pulse Rate [ 91 H Anterior Bilateral Throughout] Respiratory 20 Rate [Anterior Bilateral Throughout] O2 Sat by Pulse 97 Oximetry Constitutional: no acute distress ENT: oropharynx moist, other (Crowded oropharynx) Neck: supple Ascultation: Bilateral: diminished breath sounds Cardiovascular: regular rate and rhythm Gastrointestinal: normoactive bowel sounds, soft, non-tender, other (Obese) Integumentary: normal Extremities: no cyanosis, no edema CBC and BMP: 03/26/21 07:13 03/26/21 07:13 ABG, PT/INR, D-dimer: ABG ABG pH 7.303 pH Units (7.350-7.450) L 03/25/21 16:35 ABG pCO2 68.0 mm Hg 03/25/21 16:35 ABG pO2 51.2 mm Hg (80.0-90.0) L 03/25/21 16:35 ABG O2 Saturation 89.0 % (95.0-99.0) L 03/25/21 16:35 PT/INR, D-dimer PT 12.9 Sec. (12.2-14.9) 03/25/21 10:53 INR 0.88 (0.87-1.13) 03/25/21 10:53 Abnormal lab findings: Abnormal Labs 03/25/21 03/25/21 03/25/21 10:53 10:53 16:35 WBC RBC 5.10 H Hct 46.1 H [place] % (Auto) 8.1 H Seg Neutrophils % 70.2 H Seg Neuts % (Manual) Lymphocytes % (Manual) Seg Neutrophils # Man Lymphocytes # (Manual) ABG pH 7.303 L ABG pO2 51.2 L ABG HCO3 32.9 H ABG O2 Saturation 89.0 L ABG Base Excess 4.2 H Oxyhemoglobin 85.4 L Potassium 5.1 H Chloride Creatinine 0.5 L Glucose 106 H CK-MB (CK-2) 4.3 H CK-MB (CK-2) Rel Index 5.5 H 03/26/21 03/26/21 07:13 07:13 WBC 17.7 H RBC 5.30 H Hct 48.0 H [place] % (Auto) Seg Neutrophils % Seg Neuts % (Manual) 90.0 H Lymphocytes % (Manual) 3.0 L Seg Neutrophils # Man 15.9 H Lymphocytes # (Manual) 0.5 L ABG pH ABG pO2 ABG HCO3 ABG O2 Saturation ABG Base Excess Oxyhemoglobin Potassium Chloride 96.2 L Creatinine 0.5 L Glucose 140 H CK-MB (CK-2) CK-MB (CK-2) Rel Index
== END 2021-03-30 13:00 | disposition left against medical advice (07) | DRG 189 ==
LOC: ED 10:01 → 3A 15:17
PROVIDERS: ADMIT Internal Medicine; ATTEND Internal Medicine
PROC: 4A033R1 Measurement of Arterial Saturation, Peripheral, Percutaneous Approach (ICD-10-PCS; principal; 2021-03-25)
DX: J96.01 Acute respiratory failure with hypoxia (principal); J44.1 Chronic obstructive pulmonary disease with (acute) exacerbation; E66.2 Morbid (severe) obesity with alveolar hypoventilation; F17.210 Nicotine dependence, cigarettes, uncomplicated; Z20.822 Contact with and (suspected) exposure to COVID-19; Z82.49 Family history of ischemic heart disease and other diseases of the circulatory system; F10.20 Alcohol dependence, uncomplicated; Z68.31 Body mass index [BMI] 31.0-31.9, adult
CPT/HCPCS: 36415; 36600; 71045; 80048; 80053; 82550; 82553; 82803; 83880; 84484; 85007; 85025; 85610; 93005; 94640; 94644; 94760; 99285; G0378; J1940; J2060; J2920; J2930; J3475; U0003

== ENCOUNTER 2021-07-20 23:45 | Inpatient (IN) | payer SELFPAY ==
[2021-07-20] MEDS ORDERED: ALBUTEROL 2.5 MG/3 ML NEBU IH ONE (23:52)
[2021-07-20] MEDS ORDERED: IPRATROPIUM 0.02% NEBU 2.5 ML IH ONE (23:52)
[2021-07-20] MEDS ORDERED: methylPREDNISolone Sod Succinate 125 MG/2 ML INJ IV ONE (23:52)
--- NOTE | 2021-07-20 23:55 | Emergency Department Report ---
ED General Adult HPI - General Chief complaint: Dyspnea/Respdistress Stated complaint: COPD EPISODE Time Seen by Provider: 07/20/21 23:52 Source: patient, EMS ( EMS documentation not available at time of chart dictation ), RN notes reviewed, old records reviewed Mode of arrival: Stretcher Limitations: Physical Limitation - History of Present Illness Initial comments: The patient is a 51-year-old gentleman. He has a history of chronic respiratory failure, obesity hypoventilation syndrome, alcohol dependence and tobacco abuse The patient recently relocated from [facility]. He is supposed to be on home oxygen, but reports that his home oxygen has run out. He presents to the ER today with a complaint of shortness of breath which is painless. EMS gave albuterol in the field. Patient denies travel, surgery, immobilization, DVT/PE risk factors. He feels somewhat improved. He does endorse chronic lower extremity swelling. Patient was recently admitted to this hospital March 2021 for similar symptoms. He eventually signed out AGAINST MEDICAL ADVICE. In addition, he was seen by case management, who indicated the following: " CM spoke with patient about his financial status, advised that the monthly cost for home oxygen is $150.00/month, NIV is $800/month, patient states that he has no credit or debit card, he is paid in [place], he states that although he feels that he can pay $950.00/month for DME, he knows that he cannot as he has not been working due to hospitalization. 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 He will advise CM on Tuesday if he has any family members willing to assist in paying for his DME. CM encouraged patient again to apply for insurance at [email or web address], patient verbalized understanding. CM team will continue to follow to ensure a safe discharge." -: Sudden, days(s) Consistency: constant Improves with: medication, rest Worsens with: movement - Related Data Home Medications Medication Instructions Recorded Confirmed Last Taken Albuterol Mdi (or & Nicu Only) 1 puff INHALATION QAM&QHS 03/26/21 03/26/21 03/24/21 [ProAir HFA Inhaler] Allergies Allergy/AdvReac Type Severity Reaction Status Date / Time No Known Allergies Allergy Verified 03/26/21 08:24 ED Review of Systems ROS: Stated complaint: COPD EPISODE Other details as noted in HPI Constitutional: malaise, weakness. denies: fever ENT: congestion Respiratory: shortness of breath, SOB with exertion, SOB at rest, wheezing. denies: cough Cardiovascular: edema. denies: chest pain Gastrointestinal: denies: abdominal pain, hematemesis, melena, hematochezia Neurological: weakness Hematological/Lymphatic: denies: easy bleeding ED Past Medical Hx - Past Medical History Previous Medical History?: Yes Hx Hypertension: Yes Hx Heart Attack/AMI: Yes (2006) Hx Congestive Heart Failure: Yes Hx Diabetes: Yes Hx COPD: Yes - Social History Smoking Status: Heavy Tobacco Smoker - Medications Home Medications: Home Medications Medication Instructions Recorded Confirmed Last Taken Type Albuterol Mdi (or & Nicu Only) 1 puff INHALATION QAM&QHS 03/26/21 03/26/21 03/24/21 History [ProAir HFA Inhaler] ED Physical Exam - General Limitations: Physical Limitation General appearance: alert, anxious, in distress, obese - Head Head exam: Present: atraumatic, normocephalic - Eye Eye exam: Present: normal appearance, EOMI. Absent: nystagmus - ENT ENT exam: Present: normal exam, normal orophraynx, mucous membranes moist, normal external ear exam - Neck Neck exam: Present: normal inspection, full ROM. Absent: tenderness, meningismus - Respiratory Respiratory exam: Present: respiratory distress, accessory muscle use, decreased breath sounds - Cardiovascular Cardiovascular Exam: Present: normal rhythm, tachycardia, normal heart sounds. Absent: bradycardia, irregular rhythm, systolic murmur, diastolic murmur, rubs, gallop - GI/Abdominal GI/Abdominal exam: Present: soft. Absent: distended, tenderness, guarding, rebound, rigid, pulsatile mass - Rectal Rectal exam: Present: deferred - Extremities Exam Extremities exam: Present: normal inspection, full ROM, pedal edema (2+ edema in the bilateral lower extrema), other (2+ pulses noted in the bilateral upper and lower extremities. There is no palpable cord. negative Homans sign. Muscular compartments are soft. The pelvis is stable.). Absent: calf tenderness - Back Exam Back exam: Present: normal inspection, full ROM. Absent: tenderness, CVA tenderness (R), CVA tenderness (L), paraspinal tenderness, vertebral tenderness - Neurological Exam Neurological exam: Present: alert, oriented X3, other (No facial droop. Tongue midline. Extraocular movements intact bilaterally. Facial sensation intact to light touch in V1, V2, V3 distribution bilaterally. 5 and a 5 strength in 4 ex tremities. Sensation intact to light touch in 4 extremities.). Absent: motor sensory deficit - Psychiatric Psychiatric exam: Present: anxious - Skin Skin exam: Present: warm, dry, intact, normal color. Absent: rash ED Course Vital Signs 07/20/21 07/21/21 23:51 00:08 Temperature 98 F Pulse Rate 126 H Pulse Rate [ 125 H Bilateral] Respiratory 18 Rate Respiratory 18 Rate [Bilateral ] Blood Pressure 129/88 [Right] O2 Sat by Pulse 96 Oximetry - Reevaluation(s) Reevaluation #1: 07/21/21 00:45 Differential diagnosis, including but not limited to: CHF, COPD, pulmonary hypertension, obstructive sleep apnea, chronic hypoxic respiratory failure Assessment and plan: 51-year-old gentleman, with chronic hypoxic respiratory failure, probable obstructive sleep apnea, pulmonary hypertension, obesity hypoventilation syndrome, known history of COPD, presenting with exacerbation of COPD, and probable right-sided heart failure. Patient not safe for discharge as he is not able to follow-up closely as an outpatient, and does not have home oxygen. Continue 3 L of oxygen, start albuterol, Atrovent, steroids, Lasix, admit patient to the medical service for medical optimization. Patient is chest pain-free at this time. He is agreeable to this plan of care. Dr Collins to admit to IMS 07/21/21 01:12 Tachycardia likely secondary to albuterol ED Medical Decision Making - Lab Data Result diagrams: 07/21/21 00:01 07/21/21 00:01 Vital Signs 07/20/21 07/21/21 23:51 00:08 Temperature 98 F Pulse Rate 126 H Pulse Rate [ 125 H Bilateral] Respiratory 18 Rate Respiratory 18 Rate [Bilateral ] Blood Pressure 129/88 [Right] O2 Sat by Pulse 96 Oximetry Lab Results 07/21/21 07/21/21 Range/Units 00:01 00:01 WBC 8.7 (4.5-11.0) K/mm3 RBC 4.44 (3.65-5.03) M/mm3 Hgb 13.4 (11.8-15.2) gm/dl Hct 40.6 (35.5-45.6) % MCV 91 (84-94) fl MCH 30 (28-32) pg MCHC 33 (32-34) % RDW 14.5 (13.2-15.2) % Plt Count 300 (140-440) K/mm3 Lymph % (Auto) 17.2 (13.4-35.0) % [place] % (Auto) 13.0 H (0.0-7.3) % Eos % (Auto) 3.0 (0.0-4.3) % Baso % (Auto) 0.4 (0.0-1.8) % Lymph # (Auto) 1.5 (1.2-5.4) K/mm3 [place] # (Auto) 1.1 H (0.0-0.8) K/mm3 Eos # (Auto) 0.3 (0.0-0.4) K/mm3 Baso # (Auto) 0.0 (0.0-0.1) K/mm3 Seg Neutrophils % 66.4 (40.0-70.0) % Seg Neutrophils # 5.8 (1.8-7.7) K/mm3 Estimated GFR > 60 ml/min BUN/Creatinine Ratio 21 % Troponin T < 0.010 (0.00-0.029) ng/mL Albumin/Globulin Ratio 1.4 % - EKG Data -: EKG Interpreted by Ne EKG shows normal: sinus rhythm Rate: tachycardia - EKG Data 07/21/21 01:12 The EKG is interpreted at 12: 50 1 AM Sinus rhythm, tachycardia, rate 123 bpm. Left axis deviation, left anterior fascicular block, motion artifact, poor R wave progression. QTc 4 7 2 ms. Abnormal EKG. Not a STEMI. Appears unchanged when compared to prior EKG from 03/2021 - Radiology Data Radiology results: report reviewed, image reviewed CHEST 1 VIEW 07/21/2021 12:22 AM INDICATION / CLINICAL INFORMATION: Dyspnea. COMPARISON: 03/25/2021 FINDINGS: SUPPORT DEVICES: None. HEART / MEDIASTINUM: There is mild cardiomegaly. LUNGS / PLEURA: There is mild interstitial edema. No pneumothorax. ADDITIONAL FINDINGS: No significant additional findings. IMPRESSION: 1. Findings likely indicating mild CHF as described. Signer Name: Sukumar Infante MD Signed: 07/20/2021 11:36 PM Workstation Name: [id number] Critical Care Time: Yes Critical care time in (mins) excluding proc time.: 35 Critical care attestation.: If time is entered above; I have spent that time in minutes in the direct care of this critically ill patient, excluding procedure time. ED Disposition Clinical Impression: Acute exacerbation of COPD with asthma, Acute congestive heart failure Disposition: ADMITTED INPATIENT Is pt being admited?: Yes Does the pt Need Aspirin: No Condition: Good Referrals: PRIMARY CARE, [Primary Care Provider] - 3-5 Days
[2021-07-21 00:28] LABS: Basophils % (Auto) 0.4 % (0.0-1.8); Eosinophils # (Auto) 0.3 K/mm3 (0.0-0.4); Hematocrit 40.6 % (35.5-45.6); Hemoglobin 13.4 gm/dl (11.8-15.2); Lymphocytes # (Auto) 1.5 K/mm3 (1.2-5.4); Lymphocytes % (Auto) 17.2 % (13.4-35.0); Mean Corpuscular HGB Conc 33 % (32-34); Mean Corpuscular Volume 91 fl (84-94); Monocytes # (Auto) 1.1 K/mm3 (0.0-0.8); Platelet Count 300 K/mm3 (140-440); Red Blood Count 4.44 M/mm3 (3.65-5.03); Red Cell Distribution Width 14.5 % (13.2-15.2)
[2021-07-21 00:38] LABS: Alanine Aminotransferase 25 units/L (7-56); Albumin 4.1 g/dL (3.9-5); BUN/Creatinine Ratio 21; Blood Urea Nitrogen 17 mg/dL (9-20); Calcium 9.4 mg/dL (8.4-10.2); Hemolysis Index 3
--- NOTE | 2021-07-21 00:40 | XRay Report ---
CHEST 1 VIEW 07/21/2021 12:22 AM INDICATION / CLINICAL INFORMATION: Dyspnea. COMPARISON: 03/25/2021 FINDINGS: SUPPORT DEVICES: None. HEART / MEDIASTINUM: There is mild cardiomegaly. LUNGS / PLEURA: There is mild interstitial edema. No pneumothorax. ADDITIONAL FINDINGS: No significant additional findings. IMPRESSION: 1. Findings likely indicating mild CHF as described. Signer Name: Sukumar Infante MD Signed: 07/21/2021 12:36 AM Workstation Name: [id number]
[2021-07-21] MEDS ORDERED: DOXYCYCLINE 100 MG CAP PO ONE (00:46)
[2021-07-21] MEDS ORDERED: FUROSEMIDE 40 MG/4 ML INJ IV ONE (00:46)
[2021-07-21 00:49] LABS: INR 0.92 (0.87-1.13)
[2021-07-21 00:50] LABS: Partial Thromboplastin Time 27.4 Sec. (24.2-36.6)
[2021-07-21] MEDS ORDERED: ACETAMINOPHEN 325 MG TAB PO PRN (01:28)
[2021-07-21] MEDS ORDERED: HYDROmorphone 1 MG/1 ML INJ IV PRN (01:28)
[2021-07-21] MEDS ORDERED: MORPHINE 2 MG/1 ML INJ IV PRN (01:28)
[2021-07-21] MEDS ORDERED: ONDANSETRON 4 MG/2 ML INJ IV PRN (01:28)
[2021-07-21] MEDS ORDERED: ALBUTEROL 2.5 MG/3 ML NEBU IH PRN (01:28)
[2021-07-21] MEDS ORDERED: DEXTROSE 50% IN WATER (25GM) 50 ML SYRINGE IV PRN (01:31)
--- NOTE | 2021-07-21 01:37 | History and Physical Report ---
History of Present Illness Date of examination: 07/21/21 Date of admission: 07/21/21 Chief complaint: Shortness of breath History of present illness: 51 years old male with history of hypoventilation syndrome, tobacco abuse, obesity, alcohol abuse, COPD was brought to the emergency room because of shortness of breath. Patient supposed to be on home oxygen but reports that his home oxygen has ran out. Patient also complained of chronic lower extremity swelling. In the emergency room patient chest x-ray compatible with CHF exacerbation, so going to admit the patient with the diagnosis of COPD CHF exacerbation we will put the patient on IV Lasix neb treatment and order echocardiogram Past History Past Medical History: COPD, diabetes, heart failure, hypertension, other (chronic respiratory failure, obesity hypoventilation syndrome, alcohol dependence and tobacco abuse) Past Surgical History: No surgical history Social history: smoking, alcohol abuse Family history: no significant family history Medications and Allergies Allergies Allergy/AdvReac Type Severity Reaction Status Date / Time No Known Allergies Allergy Verified 03/26/21 08:24 Home Medications Medication Instructions Recorded Confirmed Last Taken Type Albuterol Mdi (or & Nicu Only) 1 puff INHALATION QAM&QHS 03/26/21 03/26/21 03/24/21 History [ProAir HFA Inhaler] Review of Systems All systems: negative Cardiovascular: orthopnea, edema, shortness of breath, dyspnea on exertion Respiratory: shortness of breath, dyspnea on exertion, wheezing Exam - Constitutional Vitals: Temp Pulse Resp BP Pulse Ox 98 F 125 H 18 129/88 96 07/20/21 23:51 07/21/21 00:08 07/21/21 00:08 07/20/21 23:51 07/20/21 23:51 General appearance: Present: no acute distress, well-nourished - EENT Eyes: Present: PERRL ENT: hearing intact, clear oral mucosa - Neck Neck: Present: supple, normal ROM - Respiratory Respiratory effort: normal Respiratory: bilateral: CTA - Cardiovascular Heart Sounds: Present: S1 & S2. Absent: rub, click - Extremities Extremities: pulses symmetrical, No edema Peripheral Pulses: within normal limits - Abdominal General gastrointestinal: Present: soft, non-tender, non-distended, normal bowel sounds Male genitourinary: Present: normal - Integumentary Integumentary: Present: clear, warm, dry - Musculoskeletal Musculoskeletal: gait normal, strength equal bilaterally - Psychiatric Psychiatric: appropriate mood/affect, intact judgment & insight - Neurologic Neurologic: CNII-XII intact, moves all extremities HEART Score - HEART Score Troponin: Troponin T < 0.010 ng/mL (0.00-0.029) 07/21/21 00:01 Results - Labs CBC & Chem 7: 07/21/21 00:01 07/21/21 00:01 Labs: Laboratory Last Values WBC 8.7 K/mm3 (4.5-11.0) 07/21/21 00:01 RBC 4.44 M/mm3 (3.65-5.03) 07/21/21 00:01 Hgb 13.4 gm/dl (11.8-15.2) 07/21/21 00: Hct 40.6 % (35.5-45.6) 07/21/21 00: MCV 91 fl (84-94) 07/21/21 00:01 MCH 30 pg (28-32) 07/21/21 00:01 MCHC 33 % (32-34) 07/21/21 00:01 RDW 14.5 % (13.2-15.2) 07/21/21 00:01 Plt Count 300 K/mm3 (140-440) 07/21/21 00:01 Lymph % (Auto) 17.2 % (13.4-35.0) 07/21/21 00:01 [place] % (Auto) 13.0 % (0.0-7.3) H 07/21/21 00:01 Eos % (Auto) 3.0 % (0.0-4.3) 07/21/21 00:01 Baso % (Auto) 0.4 % (0.0-1.8) 07/21/21 00:01 Lymph # (Auto) 1.5 K/mm3 (1.2-5.4) 07/21/21 00:01 [place] # (Auto) 1.1 K/mm3 (0.0-0.8) H 07/21/21 00:01 Eos # (Auto) 0.3 K/mm3 (0.0-0.4) 07/21/21 00:01 Baso # (Auto) 0.0 K/mm3 (0.0-0.1) 07/21/21 00:01 Seg Neutrophils % 66.4 % (40.0-70.0) 07/21/21 00:01 Seg Neutrophils # 5.8 K/mm3 (1.8-7.7) 07/21/21 00: PT 13.3 Sec. (12.2-14.9) 07/21/21 00:01 INR 0.92 (0.87-1.13) 07/21/21 00:01 APTT 27.4 Sec. (24.2-36.6) 07/21/21 00:01 Sodium 145 mmol/L (137-145) 07/21/21 00:01 Potassium 3.6 mmol/L (3.6-5.0) 07/21/21 00:01 Chloride 99.2 mmol/L (98-107) 07/21/21 00: Carbon Dioxide 35 mmol/L (22-30) H 07/21/21 00:01 Anion Gap 14 mmol/L 07/21/21 00: BUN 17 mg/dL (9-20) 07/21/21 00: Creatinine 0.8 mg/dL (0.8-1.3) 07/21/21 00: Estimated GFR > 60 ml/min 07/21/21 00: BUN/Creatinine Ratio 21 % 07/21/21 00: Glucose 104 mg/dL (75-100) H 07/21/21 00:01 Calcium 9.4 mg/dL (8.4-10.2) 07/21/21 00: Magnesium 2.20 mg/dL (1.7-2.3) 07/21/21 00: Total Bilirubin 0.70 mg/dL (0.1-1.2) 07/21/21 00: AST 19 units/L (5-40) 07/21/21 00:01 ALT 25 units/L (7-56) 07/21/21 00:01 Alkaline Phosphatase 101 units/L (35-129) 07/21/21 00: Total Creatine Kinase 165 units/L (55-170) 07/21/21 00:01 Troponin T < 0.010 ng/mL (0.00-0.029) 07/21/21 00: NT-Pro-B Natriuret Pep 85.67 pg/mL (0-900) 04/05/22 00:01 Total Protein 7.0 g/dL (6.3-8.2) 07/21/21 00:01 Albumin 4.1 g/dL (3.9-5) 07/21/21 00:01 Albumin/Globulin Ratio 1.4 % 07/21/21 00:01 - Imaging and Cardiology Chest x-ray: report reviewed Assessment and Plan VTE prophylaxis?: Chemical Plan of care discussed with patient/family: Yes - Patient Problems (1) Acute congestive heart failure Current Visit: Yes Status: Acute Plan to address problem: Admit the patient to the medical telemetry. Cardiac diet. Lasix 40 mg IV every 12 hours. Fluid restriction. Maintain input output. Echocardiogram. Consult cardiology if needed (2) Acute exacerbation of COPD with asthma Current Visit: Yes Status: Acute Plan to address problem: Oxygen via nasal cannula heat treater helper pulmonate. DuoNeb by nebulizer every 4 hours. Albuterol via nebulizer every 4 hours as needed. Solu-Medrol 40 mg IV every 12 hours (3) Alcohol dependence Current Visit: No Status: Acute Qualifiers: Plan to address problem: We counseled the patient regarding quitting smoking. We put the patient on thiamine folic acid and banana bag (4) Nicotine dependence Current Visit: No Status: Acute Qualifiers: Plan to address problem: We counseled regarding quitting smoking. We put the patient on nicotine patch (5) Obesity hypoventilation syndrome Current Visit: No Status: Acute Plan to address problem: Oxygen via nasal cannula heat treater helper pulmonate. DuoNeb by nebulizer every 4 hours. Albuterol via nebulizer every 4 hours as needed. Solu-Medrol 40 mg IV every 12 hours (6) Wheezing Current Visit: No Status: Acute Plan to address problem: Oxygen via nasal cannula heat treater helper pulmonate. DuoNeb by nebulizer every 4 hours. Albuterol via nebulizer every 4 hours as needed. Solu-Medrol 40 mg IV every 12 hours (7) DVT prophylaxis Current Visit: No Status: Acute Plan to address problem: Heparin 5000 units subcu every 12 hours for DVT prophylaxis. Pepcid 20 mg p.o. twice daily for GI prophylaxis. Patient is a full code
[2021-07-21] MEDS ORDERED: THIAMINE 100 MG, FOLIC ACID 1 MG, MULTIPLE VITAMIN INJ, ADULT 10 ML in SODIUM CHLORIDE ... IV ONE (02:15)
[2021-07-21] MEDS ORDERED: NICOTINE 21 MG/24 HR PATCH TD ONE (02:38)
[2021-07-21] MEDS: IPRATROPIUM/ALBUTEROL SULFATE 3 ML AMPUL.NEB IH SCH ×4 (03:40→20:46)
[2021-07-21] MEDS ORDERED: FUROSEMIDE 40 MG/4 ML INJ IV SCH (06:00)
[2021-07-21] MEDS ORDERED: FAMOTIDINE 20 MG/2 ML INJ IV SCH (10:00)
[2021-07-21] MEDS: INSULIN LISPRO 100 UNIT/ML SUB-Q SCH ×4 (10:11→22:08)
[2021-07-21] MEDS: methylPREDNISolone Sod Succinate 40 MG/1 ML INJ IV SCH ×2 (10:11→22:07)
[2021-07-21] MEDS: HEPARIN 5,000 UNIT/1 ML VIAL SUB-Q SCH ×2 (10:11→22:07)
--- NOTE | 2021-07-21 11:56 | Electrocardiograph Report ---
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
--- NOTE | 2021-07-21 15:05 | Event Note ---
Date: 07/21/21 #Possible heart failure -Pending TTE to evaluate EF. Cardiology will be consulted if needed. Continue telemetry, cardiac diet Continue to monitor #Acute exacerbation of COPD with asthma #Obesity hypoventilation syndrome Likely secondary to running out of medications and not having home oxygen Oxygen via nasal cannula drier belt conveyor pulmonate. DuoNeb by nebulizer every 4 hours. Albuterol via nebulizer every 4 hours as needed. Solu-Medrol 40 mg IV every 12 hours Case management made aware of resource issues. Patient has previously been evaluated at this hospital, and he left AMA. Wean oxygen as tolerated. Patient counseled on the importance of weight loss and following up with outsid e appointments. Patient expresses understanding. #Alcohol dependence - Counseled patient on the importance of ETOH cessation. Assess patient's current ETOH consumption. Assisted with trying to arrange resources for patient to adequately work towards ETOH cessation. Patient expresses understanding. -Continue daily folic acid, thiamine, and multivitamin -Time: +10 mins #Tobacco dependence #Tobacco/Smoking cessation counseling - Counseled patient about the importance of smoking cessation and the possible sequelae as a result of continued tobacco consumption. The patient expresses understanding. Continue nicotine patch daily. -Time: +10 mins #Obesity #Weight loss counseling #Exercise counseling - BMI 34.7 - Counseled patient on the importance of weight loss, incorporating exercise, and dietary changes (lean meats, fresh fruits and vegetables, and water intake). Patient expresses understanding. - Time: +15 min #Coordination of CARE time: 20 minutes #Advanced care planning -Disease education conducted, care plan discussed, diagnoses discussed, prognosis discussed, and patient acknowledges understanding with care plan -Time: +30 min
[2021-07-21] MEDS ORDERED: FOLIC ACID 1 MG, THIAMINE 100 MG, MULTIPLE VITAMIN INJ, ADULT 10 ML in SODIUM CHLORIDE ... IV SCH (22:00)
[2021-07-21] MEDS: FAMOTIDINE 20 MG TAB PO SCH (22:07)
[2021-07-22] MEDS: IPRATROPIUM/ALBUTEROL SULFATE 3 ML AMPUL.NEB IH SCH ×4 (03:10→21:26)
[2021-07-22 05:25] LABS: Basophils % (Auto) 0.2 % (0.0-1.8); Hematocrit 40.8 % (35.5-45.6); Hemoglobin 12.9 gm/dl (11.8-15.2); Lymphocytes # (Auto) 0.6 K/mm3 (1.2-5.4); Lymphocytes % (Auto) 5.3 % (13.4-35.0); Mean Corpuscular HGB Conc 32 % (32-34); Mean Corpuscular Volume 93 fl (84-94); Monocytes # (Auto) 0.7 K/mm3 (0.0-0.8); Monocytes % (Auto) 6.2 % (0.0-7.3); Platelet Count 317 K/mm3 (140-440); Red Cell Distribution Width 14.5 % (13.2-15.2)
[2021-07-22 05:49] LABS: Blood Urea Nitrogen 15 mg/dL (9-20); Calcium 8.8 mg/dL (8.4-10.2); Hemolysis Index 3
[2021-07-22 05:50] LABS: BUN/Creatinine Ratio 30
[2021-07-22] MEDS: THIAMINE 100 MG TAB PO SCH (09:15)
[2021-07-22] MEDS: MULTIVITAMINS,THER W-MINERALS TAB PO SCH (09:15)
[2021-07-22] MEDS: FOLIC ACID 1 MG TAB PO SCH (09:15)
[2021-07-22] MEDS: FAMOTIDINE 20 MG TAB PO SCH ×2 (09:15→21:58)
[2021-07-22] MEDS: predniSONE 20 MG TAB PO SCH (09:16)
[2021-07-22] MEDS: INSULIN LISPRO 100 UNIT/ML SUB-Q SCH ×4 (09:16→21:59)
[2021-07-22] MEDS: HEPARIN 5,000 UNIT/1 ML VIAL SUB-Q SCH ×2 (09:16→21:58)
[2021-07-22] MEDS ORDERED: AZITHROMYCIN 250 MG TAB PO SCH (10:00)
[2021-07-22] MEDS: levoFLOXacin 500 MG TAB PO SCH (12:13)
--- NOTE | 2021-07-22 14:01 | Progress Note ---
Assessment and Plan Assessment and plan: #Possible heart failureruled out -Pending TTE to evaluate EF. Cardiology will be consulted if needed. Continue telemetry, cardiac diet Continue to monitor #Acute exacerbation of COPD with asthmaimproving #Obesity hypoventilation syndromestable Likely secondary to running out of medications and not having home oxygen Oxygen via nasal cannula director of compliance pulmonate. DuoNeb by nebulizer every 4 hours. Albuterol via nebulizer every 4 hours as needed. Discontinued Solu-Medrol 40 mg IV every 12 hours and started p.o. prednisone 40 mg daily x4 days. Case management made aware of resource issues. Patient has previously been evaluated at this hospital, and he left AMA. Wean oxygen as tolerated. Patient counseled on the importance of weight loss and following up with outside appointments. Patient expresses understanding. #Alcohol dependence - Counseled patient on the importance of ETOH cessation. Assess patient's current ETOH consumption. Assisted with trying to arrange resources for patient to adequately work towards ETOH cessation. Patient expresses understanding. -Continue daily folic acid, thiamine, and multivitamin -Time: +10 mins #Tobacco dependence #Tobacco/Smoking cessation counseling - Counseled patient about the importance of smoking cessation and the possible sequelae as a result of continued tobacco consumption. The patient expresses understanding. Continue nicotine patch daily. -Time: +10 mins #Obesity #Weight loss counseling #Exercise counseling - BMI 34.7 - Counseled patient on the importance of weight loss, incorporating exercise, and dietary changes (lean meats, fresh fruits and vegetables, and water intake). Patient expresses understanding. - Time: +15 min #Advanced care planning -Disease education conducted, care plan discussed, diagnoses discussed, prognosis discussed, and patient acknowledges understanding with care plan -Time: +30 min #Discharge planning - Patient is pending ability to obtain home oxygen and an additional 24-hour monitoring. - Case management has been made aware. - Discharge is tentatively 24-48 hours. Disposition Plan: Continue medical management Total Time Spent with Patient (Minutes): 45 minutes History Interval history: No acute events overnight. Hospitalist Physical - Constitutional Vitals: Temp Pulse Resp BP Pulse Ox 97.6 F 106 H 18 124/84 93 07/22/21 11:20 07/22/21 12:00 07/22/21 12:00 07/22/21 11:20 07/22/21 12:00 General appearance: Present: no acute distress, well-nourished, obese - EENT Eyes: Present: PERRL, EOM intact ENT: hearing intact, clear oral mucosa, edentulous - Neck Neck: Present: supple, normal ROM - Respiratory Respiratory effort: normal Respiratory: bilateral: diminished (On 3 L nasal cannula (baseline 3-4 L)) - Cardiovascular Rhythm: regular Heart Sounds: Present: S1 & S2 - Extremities Extremities: no ischemia, pulses intact, pulses symmetrical, No edema, normal temperature, normal color Peripheral Pulses: within normal limits - Abdominal General gastrointestinal: soft, non-tender, non-distended, normal bowel sounds - Integumentary Integumentary: Present: clear, warm, dry - Psychiatric Psychiatric: appropriate mood/affect, cooperative - Neurologic Neurologic: CNII-XII intact - Allied Health Allied health notes reviewed: nursing HEART Score - HEART Score Troponin: Troponin T < 0.010 ng/mL (0.00-0.029) 07/21/21 00:01 Results - Labs CBC & Chem 7: 07/22/21 05:00 07/22/21 05:00 Labs: Laboratory Last Values WBC 12.1 K/mm3 (4.5-11.0) H 07/22/21 05:00 RBC 4.40 M/mm3 (3.65-5.03) 07/22/21 05:00 Hgb 12.9 gm/dl (11.8-15.2) 07/22/21 05:00 Hct 40.8 % (35.5-45.6) 07/22/21 05:00 MCV 93 fl (84-94) 07/22/21 05:00 MCH 29 pg (28-32) 07/22/21 05:00 MCHC 32 % (32-34) 07/22/21 05:00 RDW 14.5 % (13.2-15.2) 07/22/21 05:00 Plt Count 317 K/mm3 (140-440) 07/22/21 05:00 Lymph % (Auto) 5.3 % (13.4-35.0) L 07/22/21 05:00 [place] % (Auto) 6.2 % (0.0-7.3) 07/22/21 05:00 Eos % (Auto) 0.0 % (0.0-4.3) 07/22/21 05:00 Baso % (Auto) 0.2 % (0.0-1.8) 07/22/21 05:00 Lymph # (Auto) 0.6 K/mm3 (1.2-5.4) L 07/22/21 05:00 [place] # (Auto) 0.7 K/mm3 (0.0-0.8) 07/22/21 05:00 Eos # (Auto) 0.0 K/mm3 (0.0-0.4) 07/22/21 05:00 Baso # (Auto) 0.0 K/mm3 (0.0-0.1) 07/22/21 05:00 Seg Neutrophils % 88.3 % (40.0-70.0) H 07/22/21 05:00 Seg Neutrophils # 10.7 K/mm3 (1.8-7.7) H 07/22/21 05:00 PT 13.3 Sec. (12.2-14.9) 07/21/21 00:01 INR 0.92 (0.87-1.13) 07/21/21 00:01 APTT 27.4 Sec. (24.2-36.6) 07/21/21 00:01 Sodium 141 mmol/L (137-145) 07/22/21 05:00 Potassium 4.3 mmol/L (3.6-5.0) 07/22/21 05:00 Chloride 98.2 mmol/L (98-107) 07/22/21 05:00 Carbon Dioxide 32 mmol/L (22-30) H 07/22/21 05:00 Anion Gap 15 mmol/L 07/22/21 05:00 BUN 15 mg/dL (9-20) 07/22/21 05:00 Creatinine 0.5 mg/dL (0.8-1.3) L 07/22/21 05:00 Estimated GFR > 60 ml/min 07/22/21 05:00 BUN/Creatinine Ratio 30 % 07/22/21 05:00 Glucose 170 mg/dL (75-100) H 07/22/21 05:00 POC Glucose 156 mg/dL (70-105) H 07/21/21 19:58 Calcium 8.8 mg/dL (8.4-10.2) 07/22/21 05:00 Magnesium 2.20 mg/dL (1.7-2.3) 07/21/21 00:01 Total Bilirubin 0.70 mg/dL (0.1-1.2) 07/21/21 00:01 AST 19 units/L (5-40) 07/21/21 00:01 ALT 25 units/L (7-56) 07/21/21 00:01 Alkaline Phosphatase 101 units/L (35-129) 07/21/21 00:01 Total Creatine Kinase 165 units/L (55-170) 07/21/21 00:01 Troponin T < 0.010 ng/mL (0.00-0.029) 07/21/21 00:01 NT-Pro-B Natriuret Pep 85.67 pg/mL (0-900) 07/21/21 00:01 Total Protein 7.0 g/dL (6.3-8.2) 07/21/21 00:01 Albumin 4.1 g/dL (3.9-5) 07/21/21 00:01 Albumin/Globulin Ratio 1.4 % 07/21/21 00:01 Tomas/IV: Voiding Method Urinal Active Medications - Current Medications Current Medications: Generic Name Dose Route Start Last Admin Trade Name Freq PRN Reason Stop Dose Admin Acetaminophen 650 mg 07/21/21 01:28 Acetaminophen 325 Mg Tab PO Q4H PRN Pain MILD(1-3)/Fever >100.5/FLOYD Albuterol 2.5 mg 07/21/21 01:28 Albuterol 2.5 Mg/3 Ml Nebu IH Q3HRT PRN Shortness Of Breath Albuterol/Ipratropium 1 ampul 07/22/21 08:00 07/22/21 08:40 Ipratropium/Albuterol Sulfate 3 Ml Ampul.Neb IH 1 ampul TIDRT SYED Administration Azithromycin 500 mg 07/22/21 10:00 07/22/21 09:16 Azithromycin 250 Mg Tab PO 500 mg QDAY SYED Administration Protocol Dextrose 50 ml 07/21/21 01:31 Dextrose 50% In Water (25gm) 50 Ml Syringe IV Q30MIN PRN Hypoglycemia Protocol Famotidine 20 mg 07/21/21 22:00 07/22/21 09:15 Famotidine 20 Mg Tab PO 20 mg BID SYED Administration Folic Acid 1 mg 07/22/21 10:00 07/22/21 09:15 Folic Acid 1 Mg Tab PO 1 mg DAILY SYED Administration Heparin Sodium (Porcine) 5,000 unit 07/21/21 10:00 07/22/21 09:16 Heparin 5,000 Unit/1 Ml Vial SUB-Q 5,000 unit Q12HR SYED Administration Hydromorphone HCl 0.5 mg 07/21/21 01:28 Hydromorphone 1 Mg/1 Ml Inj IV Q3H PRN Pain , Severe (7-10) Insulin Human Lispro 0 unit 07/21/21 07:30 07/22/21 12:13 Insulin Lispro 100 Unit/Ml SUB-Q Not Given ACHS SYED Protocol Levofloxacin 500 mg 07/22/21 12:00 07/22/21 12:13 Levofloxacin 500 Mg Tab PO 07/25/21 12:01 500 mg Q24H SYED Administration Protocol Morphine Sulfate 2 mg 07/21/21 01:28 Morphine 2 Mg/1 Ml Inj IV Q4H PRN Pain, Moderate (4-6) Multivitamins/Minerals 1 each 07/22/21 10:00 07/22/21 09:15 Multivitamins,Ther W-Minerals Tab PO 1 each QDAY SYED Administration Ondansetron HCl 4 mg 07/21/21 01:28 Ondansetron 4 Mg/2 Ml Inj IV Q8H PRN Nausea And Vomiting Prednisone 40 mg 07/22/21 10:00 07/22/21 09:16 Prednisone 20 Mg Tab PO 07/25/21 10:01 40 mg QDAY SYED Administration Sodium Chloride 10 ml 07/21/21 10:00 07/22/21 09:16 Sodium Chloride 0.9% 10 Ml Flush Syringe IV 10 ml BID SYED Administration Sodium Chloride 10 ml 07/21/21 01:28 Sodium Chloride 0.9% 10 Ml Flush Syringe IV PRN PRN LINE FLUSH Thiamine HCl 100 mg 07/22/21 10:00 07/22/21 09:15 Thiamine 100 Mg Tab PO 100 mg QDAY SYED Administration Nutrition/Malnutrition Assess - Dietary Evaluation Nutrition/Malnutrition Findings: Nutrition Notes Start: 07/21/21 12:36 Freq: Status: Active Protocol: Document 07/21/21 12:36 BI (Rec: 07/21/21 13:00 BI [id number]) Nutrition Notes Need for Assessment generated from: MD 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 Current Diet Cardiac/Consistent Carbohydrates Diet (since B ). Labs/Tests 07/21: CO2 35, Glu 104. Pertinent Medications 07/21: Insulin, Multivitamins, Thiamine, others nutritionally unremarkable. Height 5 ft 11 in Weight 112.9 kg [place] Body Weight (kg) 78.18 BMI 34.7 Intake Prior to Admission Good Weight change and time frame Pt states having unintentionally loss between 2 and 13 lbs recently. Weight Status Obese Subjective/Other Information RD consult for New Onset Diabetes and nutrition education assessment. No reports available of Pt's PO intake of meals at the time , will assess at F/U. Pt on Venturi Mask+, saturating O2 @ 93%, according to Physical Assessment History notes. Pt not new to T2DM, not a candidate for nutrition education. Percent of energy/protein needs met: Prescribed Cardiac/Consistent Carbohydrates Diet provides for energy/protein needs (1, 977 Kcal/86 g) during LOS. Burn Absent Trauma Absent GI Symptoms None Skin Integrity/Comment Assessment WNL. Minimum of two criteria No #1 Nutrition Diagnosis No nutrition diagnosis at this time Comments: Will assess Pt's PO intake of meals at F/U. Is patient on ventilator? No Is Patient Ambulatory and/or Out of Bed Yes REE-([facility]-ambulatory/OOB) [ 2594.969 [id number]] Kcal/Kg value to use for calculation 19 Approximate Energy Requirements Using 2145 kcal/Kg Calculation Used for Recommendations Kcal/kg Additional Notes Protein: 0.8-1 g/Kg AdjBW; 77- 96 g/day. Fluids: 1 ml/Kcal, or as per MD. Nutrition Intervention Change Diet Order: Continue Cardiac/Consistent Carbohydrates Diet as tolerated. Goal #1 Maintain body weight within +/ -3% of admission body weight during LOS. Follow-Up By: 07/28/21 Additional Comments Continue monitoring food tolerance, %PO intake of meals , and BM.
[2021-07-23] MEDS: INSULIN LISPRO 100 UNIT/ML SUB-Q SCH ×4 (07:57→21:28)
[2021-07-23] MEDS: IPRATROPIUM/ALBUTEROL SULFATE 3 ML AMPUL.NEB IH SCH ×3 (08:30→20:42)
[2021-07-23] MEDS: FAMOTIDINE 20 MG TAB PO SCH ×2 (09:13→21:28)
[2021-07-23] MEDS: predniSONE 20 MG TAB PO SCH (09:13)
[2021-07-23] MEDS: THIAMINE 100 MG TAB PO SCH (09:13)
[2021-07-23] MEDS: HEPARIN 5,000 UNIT/1 ML VIAL SUB-Q SCH ×2 (09:13→21:28)
[2021-07-23] MEDS: FOLIC ACID 1 MG TAB PO SCH (09:13)
[2021-07-23] MEDS: MULTIVITAMINS,THER W-MINERALS TAB PO SCH (09:13)
[2021-07-23] MEDS: levoFLOXacin 500 MG TAB PO SCH (12:53)
--- NOTE | 2021-07-23 14:50 | Progress Note ---
Assessment and Plan Assessment and plan: #Possible heart failureruled out -TTE unremarkable with normal EF. Cardiology will be consulted if needed. 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 DuoNeb by nebulizer every 4 hours. Albuterol via nebulizer every 4 hours as needed. Continue p.o. prednisone 40 mg daily x4 days (completes on 07/25/2021) Continue Levaquin 500 mg daily (completes on 07/25/2021) for antibiotic coverage in the setting of acute on chronic COPD complicated by acute on chronic hypoxic respiratory failure. Case management made aware of resource issues. Patient has previously been evaluated at this hospital, and he left AMA. Wean oxygen as tolerated. Patient counseled on the importance of weight loss and following up with outside appointments. Patient expresses understanding. #Alcohol dependence - Counseled patient on the importance of ETOH cessation. Assess patient's current ETOH consumption. Assisted with trying to arrange resources for patient to adequately work towards ETOH cessation. Patient expresses understanding. -Continue daily folic acid, thiamine, and multivitamin -Time: +10 mins #Tobacco dependence #Tobacco/Smoking cessation counseling - Counseled patient about the importance of smoking cessation and the possible sequelae as a result of continued tobacco consumption. The patient expresses understanding. Continue nicotine patch daily. -Time: +10 mins #Obesity #Weight loss counseling #Exercise counseling - BMI 34.7 - Counseled patient on the importance of weight loss, incorporating exercise, and dietary changes (lean meats, fresh fruits and vegetables, and water intake). Patient expresses understanding. - Time: +15 min #Advanced care planning -Disease education conducted, care plan discussed, diagnoses discussed, prognosis discussed, and patient acknowledges understanding with care plan -Time: +30 min #Discharge planning - Patient is pending ability to obtain home oxygen. - Case management has been made aware. - Discharge is tentatively 24-48 hours. Disposition Plan: Continue medical management Total Time Spent with Patient (Minutes): 30 minutes History Interval history: No acute events overnight. Hospitalist Physical - Constitutional Vitals: Temp Pulse Resp BP Pulse Ox 98.2 F 96 H 18 102/65 94 07/23/21 11:13 07/23/21 12:33 07/23/21 12:33 07/23/21 11:13 07/23/21 12:33 General appearance: Present: no acute distress, well-nourished, obese - EENT Eyes: Present: PERRL, EOM intact ENT: hearing intact, clear oral mucosa - Neck Neck: Present: supple, normal ROM - Respiratory Respiratory effort: normal Respiratory: bilateral: diminished (On baseline 3 L nasal cannula) - Cardiovascular Rhythm: regular Heart Sounds: Present: S1 & S2 - Extremities Extremities: no ischemia, pulses intact, pulses symmetrical, No edema, normal temperature, normal color Peripheral Pulses: within normal limits - Abdominal General gastrointestinal: soft, non-tender, non-distended, normal bowel sounds - Integumentary Integumentary: Present: clear, warm, dry - Psychiatric Psychiatric: appropriate mood/affect, cooperative - Neurologic Neurologic: CNII-XII intact, moves all extremities - Allied Health Allied health notes reviewed: nursing HEART Score - HEART Score Troponin: Troponin T < 0.010 ng/mL (0.00-0.029) 07/21/21 00:01 Results - Labs CBC & Chem 7: 07/22/21 05:00 07/22/21 05:00 Labs: Laboratory Last Values WBC 12.1 K/mm3 (4.5-11.0) H 07/22/21 05:00 RBC 4.40 M/mm3 (3.65-5.03) 07/22/21 05:00 Hgb 12.9 gm/dl (11.8-15.2) 07/22/21 05:00 Hct 40.8 % (35.5-45.6) 07/22/21 05:00 MCV 93 fl (84-94) 07/22/21 05:00 MCH 29 pg (28-32) 07/22/21 05:00 MCHC 32 % (32-34) 07/22/21 05:00 RDW 14.5 % (13.2-15.2) 07/22/21 05:00 Plt Count 317 K/mm3 (140-440) 07/22/21 05:00 Lymph % (Auto) 5.3 % (13.4-35.0) L 07/22/21 05:00 Walton % (Auto) 6.2 % (0.0-7.3) 07/22/21 05:00 Eos % (Auto) 0.0 % (0.0-4.3) 07/22/21 05:00 Baso % (Auto) 0.2 % (0.0-1.8) 07/22/21 05:00 Lymph # (Auto) 0.6 K/mm3 (1.2-5.4) L 07/22/21 05:00 Walton # (Auto) 0.7 K/mm3 (0.0-0.8) 07/22/21 05:00 Eos # (Auto) 0.0 K/mm3 (0.0-0.4) 07/22/21 05:00 Baso # (Auto) 0.0 K/mm3 (0.0-0.1) 07/22/21 05:00 Seg Neutrophils % 88.3 % (40.0-70.0) H 07/22/21 05:00 Seg Neutrophils # 10.7 K/mm3 (1.8-7.7) H 07/22/21 05:00 PT 13.3 Sec. (12.2-14.9) 07/21/21 00:01 INR 0.92 (0.87-1.13) 07/21/21 00:01 APTT 27.4 Sec. (24.2-36.6) 07/21/21 00:01 Sodium 141 mmol/L (137-145) 07/22/21 05:00 Potassium 4.3 mmol/L (3.6-5.0) 07/22/21 05:00 Chloride 98.2 mmol/L (98-107) 07/22/21 05:00 Carbon Dioxide 32 mmol/L (22-30) H 07/22/21 05:00 Anion Gap 15 mmol/L 07/22/21 05:00 BUN 15 mg/dL (9-20) 07/22/21 05:00 Creatinine 0.5 mg/dL (0.8-1.3) L 07/22/21 05:00 Estimated GFR > 60 ml/min 07/22/21 05:00 BUN/Creatinine Ratio 30 % 07/22/21 05:00 Glucose 170 mg/dL (75-100) H 07/22/21 05:00 POC Glucose 136 mg/dL (70-105) H 07/23/21 11:53 Calcium 8.8 mg/dL (8.4-10.2) 07/22/21 05:00 Magnesium 2.20 mg/dL (1.7-2.3) 07/21/21 00:01 Total Bilirubin 0.70 mg/dL (0.1-1.2) 07/21/21 00:01 AST 19 units/L (5-40) 07/21/21 00:01 ALT 25 units/L (7-56) 07/21/21 00:01 Alkaline Phosphatase 101 units/L (35-129) 07/21/21 00:01 Total Creatine Kinase 165 units/L (55-170) 07/21/21 00:01 Troponin T < 0.010 ng/mL (0.00-0.029) 07/21/21 00:01 NT-Pro-B Natriuret Pep 85.67 pg/mL (0-900) 07/21/21 00:01 Total Protein 7.0 g/dL (6.3-8.2) 07/21/21 00:01 Albumin 4.1 g/dL (3.9-5) 07/21/21 00:01 Albumin/Globulin Ratio 1.4 % 07/21/21 00:01 Tomas/IV: Voiding Method Urinal Active Medications - Current Medications Current Medications: Generic Name Dose Route Start Last Admin Trade Name Freq PRN Reason Stop Dose Admin Acetaminophen 650 mg 07/21/21 01:28 Acetaminophen 325 Mg Tab PO Q4H PRN Pain MILD(1-3)/Fever >100.5/FLOYD Albuterol 2.5 mg 07/21/21 01:28 Albuterol 2.5 Mg/3 Ml Nebu IH Q3HRT PRN Shortness Of Breath Albuterol/Ipratropium 1 ampul 07/22/21 08:00 07/22/21 21:26 Ipratropium/Albuterol Sulfate 3 Ml Ampul.Neb IH 1 ampul TIDRT SYED Administration Dextrose 50 ml 07/21/21 01:31 Dextrose 50% In Water (25gm) 50 Ml Syringe IV Q30MIN PRN Hypoglycemia Protocol Famotidine 20 mg 07/21/21 22:00 07/23/21 09:13 Famotidine 20 Mg Tab PO 20 mg BID SYED Administration Folic Acid 1 mg 07/22/21 10:00 07/23/21 09:13 Folic Acid 1 Mg Tab PO 1 mg DAILY SYED Administration Heparin Sodium (Porcine) 5,000 unit 07/21/21 10:00 07/23/21 09:13 Heparin 5,000 Unit/1 Ml Vial SUB-Q 5,000 unit Q12HR SYED Administration Hydromorphone HCl 0.5 mg 07/21/21 01:28 Hydromorphone 1 Mg/1 Ml Inj IV Q3H PRN Pain , Severe (7-10) Insulin Human Lispro 0 unit 07/21/21 07:30 07/23/21 12:06 Insulin Lispro 100 Unit/Ml SUB-Q Not Given ACHS SYED Protocol Levofloxacin 500 mg 07/22/21 12:00 07/23/21 12:53 Levofloxacin 500 Mg Tab PO 07/25/21 12:01 500 mg Q24H SYED Administration Protocol Morphine Sulfate 2 mg 07/21/21 01:28 Morphine 2 Mg/1 Ml Inj IV Q4H PRN Pain, Moderate (4-6) Multivitamins/Minerals 1 each 07/22/21 10:00 07/23/21 09:13 Multivitamins,Ther W-Minerals Tab PO 1 each QDAY SYED Administration Ondansetron HCl 4 mg 07/21/21 01:28 Ondansetron 4 Mg/2 Ml Inj IV Q8H PRN Nausea And Vomiting Prednisone 40 mg 07/22/21 10:00 07/23/21 09:13 Prednisone 20 Mg Tab PO 07/25/21 10:01 40 mg QDAY SYED Administration Sodium Chloride 10 ml 07/21/21 10:00 07/23/21 09:13 Sodium Chloride 0.9% 10 Ml Flush Syringe IV 10 ml BID SYED Administration Sodium Chloride 10 ml 07/21/21 01:28 Sodium Chloride 0.9% 10 Ml Flush Syringe IV PRN PRN LINE FLUSH Thiamine HCl 100 mg 07/22/21 10:00 07/23/21 09:13 Thiamine 100 Mg Tab PO 100 mg QDAY SYED Administration Nutrition/Malnutrition Assess - Dietary Evaluation Nutrition/Malnutrition Findings: Nutrition Notes Start: 07/21/21 12:36 Freq: Status: Active Protocol: Document 07/21/21 12:36 BI (Rec: 07/21/21 13:00 BI [id number]) Nutrition Notes Need for Assessment generated from: MD Order,eligibility supervisor,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 Current Diet Cardiac/Consistent Carbohydrates Diet (since B ). Labs/Tests 07/21: CO2 35, Glu 104. Pertinent Medications 07/21: Insulin, Multivitamins, Thiamine, others nutritionally unremarkable. Height 5 ft 11 in Weight 112.9 kg [place] Body Weight (kg) 78.18 BMI 34.7 Intake Prior to Admission Good Weight change and time frame Pt states having unintentionally loss between 2 and 13 lbs recently. Weight Status Obese Subjective/Other Information RD consult for New Onset Diabetes and nutrition education assessment. No reports available of Pt's PO intake of meals at the time , will assess at F/U. Pt on Venturi Mask+, saturating O2 @ 93%, according to Physical Assessment History notes. Pt not new to T2DM, not a candidate for nutrition education. Percent of energy/protein needs met: Prescribed Cardiac/Consistent Carbohydrates Diet provides for energy/protein needs (1, 977 Kcal/86 g) during LOS. Burn Absent Trauma Absent GI Symptoms None Skin Integrity/Comment Assessment WNL. Minimum of two criteria No #1 Nutrition Diagnosis No nutrition diagnosis at this time Comments: Will assess Pt's PO intake of meals at F/U. Is patient on ventilator? No Is Patient Ambulatory and/or Out of Bed Yes REE-([facility]-ambulatory/OOB) [ 2594.969 NUTR.[id number]] Kcal/Kg value to use for calculation 19 Approximate Energy Requirements Using 2145 kcal/Kg Calculation Used for Recommendations Kcal/kg Additional Notes Protein: 0.8-1 g/Kg AdjBW; 77- 96 g/day. Fluids: 1 ml/Kcal, or as per MD. Nutrition Intervention Change Diet Order: Continue Cardiac/Consistent Carbohydrates Diet as tolerated. Goal #1 Maintain body weight within +/ -3% of admission body weight during LOS. Follow-Up By: 07/28/21 Additional Comments Continue monitoring food tolerance, %PO intake of meals , and BM.
[2021-07-24] MEDS: INSULIN LISPRO 100 UNIT/ML SUB-Q SCH ×4 (08:35→21:29)
[2021-07-24] MEDS: FAMOTIDINE 20 MG TAB PO SCH (09:04)
[2021-07-24] MEDS: FOLIC ACID 1 MG TAB PO SCH (09:04)
[2021-07-24] MEDS: predniSONE 20 MG TAB PO SCH (09:04)
[2021-07-24] MEDS: HEPARIN 5,000 UNIT/1 ML VIAL SUB-Q SCH ×2 (09:05→21:25)
[2021-07-24] MEDS: THIAMINE 100 MG TAB PO SCH (09:05)
[2021-07-24] MEDS: MULTIVITAMINS,THER W-MINERALS TAB PO SCH (09:08)
[2021-07-24] MEDS: IPRATROPIUM/ALBUTEROL SULFATE 3 ML AMPUL.NEB IH SCH ×3 (09:12→20:07)
[2021-07-24] MEDS ORDERED: LOSARTAN 50 MG TAB PO SCH (10:00)
[2021-07-24] MEDS ORDERED: NIFEdipine XL 30 MG TAB PO SCH (10:00)
[2021-07-24] MEDS: metFORMIN 500 MG TAB PO SCH ×2 (12:59→21:25)
[2021-07-24] MEDS ORDERED: FUROSEMIDE 40 MG TAB PO SCH (13:00)
[2021-07-24] MEDS: levoFLOXacin 500 MG TAB PO SCH (13:00)
[2021-07-24] MEDS ORDERED: glipiZIDE XL 5 MG TAB PO SCH (13:00)
[2021-07-24] MEDS ORDERED: PANTOPRAZOLE 40 MG TAB PO SCH (14:00)
--- NOTE | 2021-07-24 14:00 | Discharge Summary ---
Providers - Providers Date of Admission: 07/21/21 01:58 Date of discharge: 07/24/21 Attending physician: BISHNU ORTEGA MD 07/20/21 23:53 Consult to Case Management [CONS] Routine Services Needed at Discharge: Home O2 Notified:: needs home o2 07/21/21 01:31 Consult to Dietitian/Nutrition [CONS] Routine Physician Instructions: Reason For Exam: Reason for Consult: Diet education Primary care physician: ENT SURGEON Hospitalization Reason for admission: Acute on chronic COPD exac, acute on chronic hypoxic respiratory failure Condition: Good Pertinent studies: Reviewed. Procedures: None. Hospital course: Patient is a 51-year-old male past medical history of hypoventilation syndrome, obesity, tobacco dependence, alcohol dependence, COPD, chronic hypoxic respiratory failure (baseline 3 L nasal cannula), hypertension, and noninsulin- dependent type 2 diabetes mellitus who presented with acute on chronic hypoxic respiratory failure secondary to running out of of home oxygen and medications. The patient has had multiple hospitalizations for repeated exacerbation episodes. The repeated episodes are commonly due to inability to fill prescriptions due to limited resources. On presentation, the patient was hemodynamically stable however he required BiPAP due to respiratory distress. Patient was initiated on IV steroids and antibiotics for acute COPD exacerbation management. Patient was successfully weaned to nasal cannula and eventually to his baseline oxygen requirement of 3 L. The patient showed significant clinical improvement, and he was restarted on his home medications. The patient was counseled at length about the importance of medication compliance and following up with his providers in outpatient setting. Patient qualify for home oxygen, and attempts were made in order to successfully provide him with a oxygen tank versus oxygen concentrator. Patient is medically clear for discharge. Disposition: 01 HOME / SELF CARE / HOMELESS Final Discharge Diagnosis (Prints w/discharge instructions): Acute on chronic hypoxic respiratory failure, chronic COPD with asthma, obesity hypoventilation syndrome, alcohol dependence, tobacco dependence, nin-xsumqwa-[id number] type 2 diabetes mellitus, hyperlipidemia, hypertension. Time spent for discharge: 45 min Core Measure Documentation - Palliative Care Palliative Care/ Comfort Measures: Not Applicable - Core Measures Any of the following diagnoses?: none Exam - Constitutional Vitals: Temp Pulse Resp BP Pulse Ox 98.5 F 114 H 16 146/101 96 07/24/21 07:25 07/24/21 09:12 07/24/21 09:12 07/24/21 07:25 07/24/21 09:16 General appearance: Present: no acute distress, well-nourished, obese, disheveled - EENT Eyes: Present: PERRL, EOM intact ENT: hearing intact, clear oral mucosa, edentulous - Neck Neck: Present: supple, normal ROM - Respiratory Respiratory effort: normal Respiratory: right: rales, bilateral: diminished (on 3L NC) - Cardiovascular Rhythm: regular Heart Sounds: Present: S1 & S2 - Extremities Extremities: no ischemia, pulses intact, pulses symmetrical, No edema, normal t emperature, normal color Peripheral Pulses: within normal limits - Abdominal General gastrointestinal: Present: soft, non-tender, non-distended, normal bowel sounds Male genitourinary: Present: deferred - Rectal Rectal Exam: deferred - Integumentary Integumentary: Present: clear, warm, dry - Musculoskeletal Musculoskeletal: generalized weakness - Psychiatric Psychiatric: appropriate mood/affect, cooperative - Neurologic Neurologic: CNII-XII intact, moves all extremities - Allied Health Allied health notes reviewed: nursing Plan Activity: no restrictions Diet: low salt, diabetic Additional Instructions: Patient is a 51-year-old male past medical history of hypoventilation syndrome, obesity, tobacco dependence, alcohol dependence, COPD, chronic hypoxic respiratory failure (baseline 3 L nasal cannula), hypertension, and noninsulin-dependent type 2 diabetes mellitus who presented with acute on chronic hypoxic respiratory failure secondary to running out of of home oxygen and medications. The patient has had multiple hospitalizations for repeated exacerbation episodes. The repeated episodes are commonly due to inability to fill prescriptions due to limited resources. On presentation, the patient was hemodynamically stable however he required BiPAP due to respiratory distress. Patient was initiated on IV steroids and antibiotics for acute COPD exacerbation management. Patient was successfully weaned to nasal cannula and eventually to his baseline oxygen requirement of 3 L. The patient showed significant clinical improvement, and he was restarted on his home medications. The patient was counseled at length about the importance of medication compliance and following up with his providers in outpatient setting. Patient qualify for home oxygen, and attempts were made in order to successfully provide him with a oxygen tank versus oxygen concentrator. Patient is medically clear for discharge. Care Plan Goals: Patient is medically cleared to discharge. Assessment: Patient is a 51-year-old male past medical history of hypoventilation syndrome, obesity, tobacco dependence, alcohol dependence, COPD, chronic hypoxic respiratory failure (baseline 3 L nasal cannula), hypertension, and noninsulin- dependent type 2 diabetes mellitus who presented with acute on chronic hypoxic respiratory failure secondary to running out of of home oxygen and medications. The patient has had multiple hospitalizations for repeated exacerbation episodes. The repeated episodes are commonly due to inability to fill prescrip tions due to limited resources. On presentation, the patient was hemodynamically stable however he required BiPAP due to respiratory distress. Patient was initiated on IV steroids and antibiotics for acute COPD exacerbation management. Patient was successfully weaned to nasal cannula and eventually to his baseline oxygen requirement of 3 L. The patient showed significant clinical improvement, and he was restarted on his home medications. The patient was counseled at length about the importance of medication compliance and following up with his providers in outpatient setting. Patient qualify for home oxygen, and attempts were made in order to successfully provide him with a oxygen tank versus oxygen concentrator. Patient is medically clear for discharge. Follow up with: PRIMARY CARE, [Primary Care Provider] - 3-5 Days Prescriptions: RX: AtorvaSTATin [Lipitor] 40 mg PO QHS #30 tablet Budesonide/Formoterol Fumarate [Budesonide-Formoterol 160-4.5] 10.2 gm IH BID #1 inhalation RX: Losartan [Cozaar] 100 mg PO QDAY #30 tablet RX: metFORMIN [Glucophage] 500 mg PO BID #30 tab RX: glipiZIDE XL [Glucotrol Xl] 5 mg PO DAILY #30 tab RX: Furosemide [Lasix] 40 mg PO QDAY #30 tab RX: Albuterol Mdi (or & Nicu Only) [ProAir HFA Inhaler] 1 puff IH BID PRN #8.5 gram PRN Reason: Wheezing RX: NIFEdipine XL [Procardia Xl] 30 mg PO QDAY #30 tablet
[2021-07-24 19:35] VITALS: BP 118/79
== END 2021-07-24 22:10 | disposition home or self-care (01) | DRG 291 ==
LOC: ED 23:45 → 4A 07-21 01:58
PROVIDERS: ADMIT Hospitalist; ATTEND Student in an Organized Health Care Education/Training Program
DX: I11.0 Hypertensive heart disease with heart failure (principal); J96.21 Acute and chronic respiratory failure with hypoxia; J44.1 Chronic obstructive pulmonary disease with (acute) exacerbation; E66.2 Morbid (severe) obesity with alveolar hypoventilation; F10.20 Alcohol dependence, uncomplicated; F17.200 Nicotine dependence, unspecified, uncomplicated; E78.5 Hyperlipidemia, unspecified; E11.9 Type 2 diabetes mellitus without complications; J44.9 Chronic obstructive pulmonary disease, unspecified; I50.9 Heart failure, unspecified; Z68.34 Body mass index [BMI] 34.0-34.9, adult
CPT/HCPCS: 36415; 71045; 80048; 80053; 82550; 82962; 83735; 83880; 84484; 85025; 85610; 85730; 93005; 93306; 94640; 94644; 94760; 99406; G0378; J3490; Q0162; Q9967; C8929; J1644; J1815; J1940; J2920; J2930; J3411; J7030

== ENCOUNTER 2021-11-11 08:52 | Emergency (ER) | payer SELFPAY ==
[2021-11-11 09:03] VITALS: BP 136/97
--- NOTE | 2021-11-11 10:25 | XRay Report ---
CHEST 2 VIEWS INDICATION / CLINICAL INFORMATION: Dyspnea. COMPARISON: One view of the chest from 07/21/2021. FINDINGS: SUPPORT DEVICES: None. HEART / MEDIASTINUM: No significant abnormality. LUNGS / PLEURA: Lung volumes are reduced with bibasilar atelectasis. The lungs are otherwise clear. N o significant pleural effusion. No pneumothorax. ADDITIONAL FINDINGS: No significant additional findings. IMPRESSION: 1. No acute abnormality of the chest. 2. Low lung volumes with bibasilar atelectasis. Aeration of the lungs has improved compared to the 07/21/2021 study. Signer Name: Froylan Flores MD Signed: 11/11/2021 10:21 AM Workstation Name: [email or web address]
[2021-11-11 11:05] LABS: Basophils # (Auto) 0.2 K/mm3 (0.0-0.1); Basophils % (Auto) 1.6 % (0.0-1.8); Eosinophils # (Auto) 0.1 K/mm3 (0.0-0.4); Eosinophils % (Auto) 0.7 % (0.0-4.3); Hematocrit 46.6 % (35.5-45.6); Hemoglobin 14.7 gm/dl (11.8-15.2); Lymphocytes # (Auto) 1.3 K/mm3 (1.2-5.4); Lymphocytes % (Auto) 13.1 % (13.4-35.0); Mean Corpuscular HGB Conc 32 % (32-34); Mean Corpuscular Volume 92 fl (84-94); Monocytes # (Auto) 0.6 K/mm3 (0.0-0.8); Monocytes % (Auto) 6.3 % (0.0-7.3); Platelet Count 317 K/mm3 (140-440); Red Blood Count 5.06 M/mm3 (3.65-5.03); Red Cell Distribution Width 14.3 % (13.2-15.2)
[2021-11-11 11:16] LABS: Alanine Aminotransferase 23 units/L (7-56); Albumin 4.3 g/dL (3.9-5); Blood Urea Nitrogen 12 mg/dL (9-20); Calcium 9.8 mg/dL (8.4-10.2); Hemolysis Index 2
[2021-11-11 11:19] LABS: BUN/Creatinine Ratio 24
--- NOTE | 2021-11-11 14:35 | Event Note ---
ED Screening Note ED Screening Note: ubaldo GUILLAUME charge nurse aware 1430 This initial assessment/diagnostic orders/clinical plan/treatment(s) is/are subject to change based on patients health status, clinical progression and re- assessment by fellow clinical providers in the ED. Further treatment and workup at subsequent clinical providers discretion. Patient/guardian urged not to elope from the ED as their condition may be serious if not clinically assessed and managed. Initial orders include: mse
[2021-11-11 18:15] LABS: ABG Base Excess 12.9 mmol/L (-2.0-3.0); ABG HCO3 40.4 mmol/L (20.0-26.0); ABG Methemoglobin 0.5 % (0.0-1.5); ABG Oxygen Saturation 95.2 % (95.0-99.0); ABG PCO2 64.2 mm Hg; ABG PH 7.416 pH Units (7.350-7.450); ABG PO2 63.3 mm Hg (80.0-90.0)
== END 2021-11-11 21:00 | disposition left against medical advice (07) ==
LOC: ED 08:52
DX: R06.02 Shortness of breath (principal); Z53.21 Procedure and treatment not carried out due to patient leaving prior to being seen by health care provider
CPT/HCPCS: 36415; 71046; 80053; 82803; 84484; 85025